=== PATIENT | female | born 1940 | race Caucasian/White ===

== ENCOUNTER 2023-06-21 21:01 | Emergency (ER) | payer MEDICARE ==
--- NOTE | 2023-06-21 21:14 | ED ---
General Adult HPI - General Stated complaint: Low BP Time Seen by Provider: 06/21/23 21:10 Source: patient Limitations: no limitations - History of Present Illness Initial comments: This patient is an 82-year-old woman who arrives here to have evaluation for her blood pressure. The patient states that her blood pressure has been at times low today and at times high. She states she is not feeling well. She states the main thing is that she is feeling very weak and fatigued. She is denying having any pain. She states she does have some shortness of breath but she is only short of breath and she has a chronic nonproductive cough which she states is not different today. She has not noted changes in bowel movements or urination. No vomiting or nausea. She states she just does not feel well. The patient states she has been in this area for about 3 months visiting family and that she usually resides in [place] though she believes she may not be returning there. -: hour(s) Severity scale (1-10): 0 Consistency: constant Improves with: none Worsens with: none Associated Symptoms: shortness of breath, weakness Treatments Prior to Arrival: none - Related Data Home Medications Medication Instructions Recorded Confirmed Acetaminophen Tab [Tylenol Tab] 500 - 1,000 mg PO Q4-6H PRN 06/21/23 06/21/23 Albuterol Nebulized [Ventolin 2.5 mg INHALATION RT-BID 06/21/23 06/21/23 Nebulized] Albuterol Nebulized [Ventolin 2.5 mg INHALATION RT-DAILY PRN 06/21/23 06/21/23 Nebulized] Apixaban [Eliquis] 2.5 mg PO BID@0800,2100 06/21/23 06/21/23 Aspirin 81 mg PO DAILY 06/21/23 06/21/23 Benefiber Sugar Free Powder 2 tsp PO BID@0800,1700 06/21/23 06/21/23 Benzonatate [Tessalon Perles] 100 mg PO Q8H PRN 06/21/23 06/21/23 Citalopram Hydrobromide [CeleXA] 20 mg PO HS 06/21/23 06/21/23 Cyclobenzaprine [Flexeril] 10 mg PO HS@2000 06/21/23 06/21/23 Donepezil [Aricept] 10 mg PO HS 06/21/23 06/21/23 Ergocalciferol [Vitamin D2 (1250 1,250 mcg PO FR 06/21/23 06/21/23 Mcg = 05510 Iu)] Ferrous Sulfate [Feosol] 325 mg PO Q2D@0800 06/21/23 06/21/23 [place] Relief 5.8mg Lozenge 1 lozenge MM Q2H PRN 06/21/23 06/21/23 Lactobacillus Acidophilus 1 cap PO BID@0800,2100 06/21/23 06/21/23 [Acidophilus Probiotic] Losartan [Cozaar] 50 mg PO DAILY@0800 06/21/23 06/21/23 Meloxicam [Mobic] 15 mg PO HS 06/21/23 06/21/23 Midodrine [ProAmatine] 5 mg PO Q8H PRN 06/21/23 06/21/23 Nortriptyline [Pamelor] 20 mg PO HS@2200 06/21/23 06/21/23 carvediloL [Coreg] 3.125 mg PO BID@0800,2100 06/21/23 06/21/23 cloNIDine HCL [Catapres] 0.3 mg PO DAILY PRN 06/21/23 06/21/23 rOPINIRole HCL [Requip] 2 mg PO BID@0800,1400 06/21/23 06/21/23 rOPINIRole HCL [Requip] 2 mg PO DAILY PRN 06/21/23 06/21/23 rOPINIRole HCL [Requip] 4 mg PO HS 06/21/23 06/21/23 traZODone HCL [Desyrel] 100 mg PO HS 06/21/23 06/21/23 Allergies Allergy/AdvReac Type Severity Reaction Status Date / Time Antihistamines - Alkylamine AdvReac Mild Drowsy Verified 06/21/23 22:29 Review of Systems ROS Statement: Those systems with pertinent positive or pertinent negative responses have been documented in the HPI. ROS Other: All systems not noted in ROS Statement are negative. Constitutional: Reports: weakness. Denies: fever, chills Eyes: Denies: vision change ENT: Denies: throat pain, congestion Respiratory: Reports: as per HPI, cough, dyspnea. Denies: hemoptysis Cardiovascular: Denies: chest pain, palpitations, orthopnea, edema, syncope Gastrointestinal: Denies: abdominal pain, nausea, vomiting, diarrhea, constipation Genitourinary: Denies: dysuria, frequency Musculoskeletal: Denies: back pain Skin: Denies: rash Neurological: Denies: headache, weakness, numbness General Exam General appearance: alert, in no apparent distress Head exam: Present: atraumatic, normocephalic Eye exam: Present: normal appearance, PERRL, EOMI. Absent: scleral icterus, conjunctival injection ENT exam: Present: mucous membranes dry Neck exam: Present: normal inspection, full ROM. Absent: tenderness Respiratory exam: Absent: respiratory distress, wheezes, rales, rhonchi, st ridor, accessory muscle use, decreased breath sounds Cardiovascular Exam: Present: regular rate, normal rhythm, normal heart sounds. Absent: systolic murmur, diastolic murmur, rubs, gallop GI/Abdominal exam: Present: soft. Absent: distended, tenderness, guarding, rebound, rigid, mass Extremities exam: Present: normal inspection, normal capillary refill. Absent: pedal edema, calf tenderness Back exam: Present: normal inspection. Absent: CVA tenderness (R), CVA tenderness (L) Neurological exam: Present: alert. Absent: motor sensory deficit Skin exam: Present: warm, dry, intact, normal color. Absent: rash Course Vital Signs 06/21/23 06/22/23 06/22/23 21:09 00:08 01:00 Temperature Pulse Rate 61 71 Respiratory 18 20 Rate Blood Pressure 97/53 125/58 138/70 O2 Sat by Pulse 96 96 Oximetry 06/22/23 06/22/23 06/22/23 01:30 02:00 02:30 Temperature Pulse Rate Respiratory Rate Blood Pressure 134/71 145/67 139/70 O2 Sat by Pulse Oximetry 06/22/23 02:46 Temperature 97.1 F L Pulse Rate 72 Respiratory 18 Rate Blood Pressure 131/75 O2 Sat by Pulse 98 Oximetry EKG Findings - EKG Results: EKG: interpreted by KYAW, sinus rhythm (61 bpm) - UT, Pacemaker, Normal: Myocardial infarction: septal UT (old age or indeterminate) (Old septal UT) Medical Decision Making - Medical Decision Making The patient had chest x-ray which I interpreted as being negative for acute infiltrate or pneumothorax. Was pt. sent in by a medical professional or institution ([facility], [employer]IC[employer], urgent care, hospital, or half-way...) When possible be specific @ -Patient is sent from [facility] home to have evaluation Did you speak to anyone other than the patient for history (EMS, parent, family, police, friend...)? What history was obtained from this source @ -[No] Did you review nursing and triage notes (agree or disagree)? Why? @ -[I reviewed and agree with nursing and triage notes] Were old charts reviewed (outside hosp., previous admission, EMS record, old EKG, old radiological studies, urgent care reports/EKG's, half-way records)? Report findings @ -[No old charts were reviewed] Differential Diagnosis (chest pain, altered mental status, abdominal pain women, abdominal pain men, vaginal bleeding, weakness, fever, dyspnea, syncope, headache, dizziness, GI bleed, back pain, seizure, CVA, palpatations, mental health, musculoskeletal)? @ -[Differential Altered Mental Status: Hypoglycemia, DKA, hypercapnia, ETOH, overdose, CO poisoning, trauma, myxedema coma, HTN encephalopathy, infection, encephalitis, psychosis, intercranial hemorrhage, hepatic encephalopathy, meningitis, CVA, this is not meant to be an all-inclusive list EKG interpreted by me (3pts min.). @ -[As above] X-rays interpreted by me (1pt min.). @ -[I interpreted as above CT interpreted by me (1pt min.). @ -[None done] U/S interpreted by me (1pt. min.). @ -[None done] What testing was considered but not performed or refused? (CT, X-rays, U/S, labs)? Why? @ -[None] What meds were considered but not given or refused? Why? @ -[None] Did you discuss the management of the patient with other professionals (professionals i.e. [facility], [employer]RICATOR, lab, RT, psych nurse, social professionals, laser/electro optics technician, teacher, anti air warfare operations officer, patient case coordinator)? Give summary @ -[No] Was smoking cessation discussed for >3mins.? @ -[No] Was critical care preformed (if so, how long)? @ -[No] Were there social determinants of health that impacted care today? How? (Homelessness, low income, unemployed, alcoholism, drug addiction, transportation, low edu. Level, literacy, decrease access to med. care, half-way, rehab)? @ -[No] Was there de-escalation of care discussed even if they declined (Discuss DNR or withdrawal of care, Hospice)? DNR status @ -[No] What co-morbidities impacted this encounter? (DM, HTN, Smoking, COPD, CAD, Cancer, CVA, ARF, Chemo, Hep., AIDS, mental health diagnosis, sleep apnea, morbid obesity)? @ -[None] Was patient admitted / discharged? Hospital course, mention meds given and route, prescriptions, significant lab abnormalities, going to OR and other pertinent info. @ -[Patient is an 82-year-old woman here after her there were concerns about her altered mental status after taking clonazepam. The patient found to be moderately anemic though not meeting criteria for transfusion. Patient to follow-up to have hemoglobin rechecked. She is at the [facility] home and they will send her back if there is any change in her condition Undiagnosed new problem with uncertain prognosis? @ -[No] Drug Therapy requiring intensive monitoring for toxicity (Heparin, Nitro, Insulin, Cardizem)? @ -[No] Were any procedures done? @ -[No] Diagnosis/symptom? @ -[Anemia Generalized fatigue Acute, or Chronic, or Acute on Chronic? @ -[Uncertain if this is acute or chronic as the patient does not have old labs values Uncomplicated (without systemic symptoms) or Complicated (systemic symptoms)? @ -[Complicated by generalized fatigue Side effects of treatment? @ -[No] Exacerbation, Progression, or Severe Exacerbation? @ -[No] Poses a threat to life or bodily function? How? (Chest pain, USA, UT, pneumonia, PE, COPD, DKA, ARF, appy, cholecystitis, CVA, Diverticulitis, Homicidal, Suicidal, threat to staff... and all critical care pts) @ -[Low likelihood - Lab Data Result diagrams: 06/21/23 21:40 06/21/23 21:40 Lab Results 06/21/23 06/21/23 06/21/23 Range/Units 21:40 21:40 21:40 WBC 5.7 (3.8-10.6) k/uL RBC 3.31 L (3.80-5.40) m/uL Hgb 7.5 L (11.4-16.0) gm/dL Hct 24.9 L (34.0-46.0) % MCV 75.0 L (80.0-100.0) fL MCH 22.6 L (25.0-35.0) pg MCHC 30.1 L (31.0-37.0) g/dL RDW 19.5 H (11.5-15.5) % Plt Count 323 (150-450) k/uL MPV 7.9 Neutrophils % 55 % Lymphocytes % 29 % Monocytes % 8 % Eosinophils % 4 % Basophils % 1 % Neutrophils # 3.1 (1.3-7.7) k/uL Lymphocytes # 1.7 (1.0-4.8) k/uL Monocytes # 0.5 (0-1.0) k/uL Eosinophils # 0.2 (0-0.7) k/uL Basophils # 0.1 (0-0.2) k/uL Hypochromasia Marked Anisocytosis Slight Microcytosis Moderate PT 12.1 H (9.0-12.0) sec INR 1.2 H (<1.2) APTT 26.1 (22.0-30.0) sec Sodium 133 L (137-145) mmol/L Potassium 5.0 (3.5-5.1) mmol/L Chloride 104 (98-107) mmol/L Carbon Dioxide 23 (22-30) mmol/L Anion Gap 6 mmol/L BUN 20 H (7-17) mg/dL Creatinine 0.70 (0.52-1.04) mg/dL Est GFR (CKD-EPI)AfAm >90 (>60 ml/min/1.73 sqM) Est GFR (CKD-EPI)NonAf 82 (>60 ml/min/1.73 sqM) Glucose 78 (74-99) mg/dL Plasma Lactic Acid Michael (0.7-2.0) mmol/L Calcium 7.8 L (8.4-10.2) mg/dL Magnesium 1.9 (1.6-2.3) mg/dL Total Bilirubin 0.2 (0.2-1.3) mg/dL AST 23 (14-36) U/L ALT 17 (4-34) U/L Alkaline Phosphatase 66 (38-126) U/L Troponin I (0.000-0.034) ng/mL Total Protein 5.8 L (6.3-8.2) g/dL Albumin 2.9 L (3.5-5.0) g/dL Urine Color Urine Appearance (Clear) Urine pH (5.0-8.0) Ur Specific [place] (1.001-1.035) Urine Protein (Negative) Urine Glucose (UA) (Negative) Urine Ketones (Negative) Urine Blood (Negative) Urine Nitrite (Negative) Urine Bilirubin (Negative) Urine Urobilinogen (<2.0) mg/dL Ur Leukocyte Esterase (Negative) 06/21/23 06/21/23 06/22/23 Range/Units 21:40 21:40 02:13 WBC (3.8-10.6) k/uL RBC (3.80-5.40) m/uL Hgb (11.4-16.0) gm/dL Hct (34.0-46.0) % MCV (80.0-100.0) fL MCH (25.0-35.0) pg MCHC (31.0-37.0) g/dL RDW (11.5-15.5) % Plt Count (150-450) k/uL MPV Neutrophils % % Lymphocytes % % Monocytes % % Eosinophils % % Basophils % % Neutrophils # (1.3-7.7) k/uL Lymphocytes # (1.0-4.8) k/uL Monocytes # (0-1.0) k/uL Eosinophils # (0-0.7) k/uL Basophils # (0-0.2) k/uL Hypochromasia Anisocytosis Microcytosis PT (9.0-12.0) sec INR (<1.2) APTT (22.0-30.0) sec Sodium (137-145) mmol/L Potassium (3.5-5.1) mmol/L Chloride (98-107) mmol/L Carbon Dioxide (22-30) mmol/L Anion Gap mmol/L BUN (7-17) mg/dL Creatinine (0.52-1.04) mg/dL Est GFR (CKD-EPI)AfAm (>60 ml/min/1.73 sqM) Est GFR (CKD-EPI)NonAf (>60 ml/min/1.73 sqM) Glucose (74-99) mg/dL Plasma Lactic Acid Michael 1.3 (0.7-2.0) mmol/L Calcium (8.4-10.2) mg/dL Magnesium (1.6-2.3) mg/dL Total Bilirubin (0.2-1.3) mg/dL AST (14-36) U/L ALT (4-34) U/L Alkaline Phosphatase (38-126) U/L Troponin I <0.012 (0.000-0.034) ng/mL Total Protein (6.3-8.2) g/dL Albumin (3.5-5.0) g/dL Urine Color Colorless Urine Appearance Clear (Clear) Urine pH 5.5 (5.0-8.0) Ur Specific [place] 1.004 (1.001-1.035) Urine Protein Negative (Negative) Urine Glucose (UA) Negative (Negative) Urine Ketones Negative (Negative) Urine Blood Negative (Negative) Urine Nitrite Negative (Negative) Urine Bilirubin Negative (Negative) Urine Urobilinogen <2.0 (<2.0) mg/dL Ur Leukocyte Esterase Negative (Negative) Disposition Clinical Impression: Anemia Disposition: HOME SELF-CARE Condition: Good Instructions (If sedation given, give patient instructions): Anemia (ED) Additional Instructions: As we discussed follow-up to have your blood counts rechecked in 2 days. Is patient prescribed a controlled substance at d/c from ED?: No Referrals: None,Stated [Primary Care Provider] - 1-2 days Martín Soto MD [REFERRING] - 1-2 days
[2023-06-21] MEDS ORDERED: SODIUM CHLORIDE 0.9% 500 ML 500 ML IV STA (21:23)
[2023-06-21 22:13] LABS: Anisocytosis Slight; Basophils # (A) 0.1 k/uL (0-0.2); Basophils % (A) 1 %; Eosinophils # (A) 0.2 k/uL (0-0.7); Eosinophils % (A) 4 %; HCT 24.9 % (34.0-46.0); HGB 7.5 gm/dL (11.4-16.0); Hypochromasia Marked; Lymphocytes # (A) 1.7 k/uL (1.0-4.8); Lymphocytes % (A) 29 %; MCH 22.6 pg (25.0-35.0); MCHC 30.1 g/dL (31.0-37.0); Mean Platelet Volume 7.9; Microcytosis Moderate; Monocytes # (A) 0.5 k/uL (0-1.0); Monocytes % (A) 8 %; Neutrophils # (A) 3.1 k/uL (1.3-7.7); Neutrophils % (A) 55 %; Platelet Count 323 k/uL (150-450); RBC 3.31 m/uL (3.80-5.40); RDW 19.5 % (11.5-15.5); WBC 5.7 k/uL (3.8-10.6)
[2023-06-21 22:22] LABS: INR 1.2 (<1.2); Partial Thromboplastin Time 26.1 sec (22.0-30.0); Prothrombin Time 12.1 sec (9.0-12.0)
[2023-06-21 22:35] LABS: ALT 17 U/L (4-34); AST 23 U/L (14-36); African American GFR (CKD) >90 (>60 ml/min/1.73 sqM); Albumin 2.9 g/dL (3.5-5.0); Alkaline Phosphatase 66 U/L (38-126); Anion Gap 6 mmol/L; Blood Urea Nitrogen 20 mg/dL (7-17); Calcium 7.8 mg/dL (8.4-10.2); Carbon Dioxide 23 mmol/L (22-30); Chloride 104 mmol/L (98-107); Glucose 78 mg/dL (74-99); Magnesium 1.9 mg/dL (1.6-2.3); Non-African American GFR(CKD) 82 (>60 ml/min/1.73 sqM); Sodium 133 mmol/L (137-145); Total Bilirubin 0.2 mg/dL (0.2-1.3); Total Protein 5.8 g/dL (6.3-8.2)
--- NOTE | 2023-06-21 23:02 | XR ---
EXAM: XR Chest, 2 Views CLINICAL HISTORY: Weakness TECHNIQUE: Frontal and lateral views of the chest. COMPARISON: No relevant prior studies available. FINDINGS: Lungs: No consolidation. Minimal basilar atelectasis. No CHF. Pleural space: No pleural effusion. No pneumothorax. Heart: No cardiomegaly. Mediastinum: Unremarkable. Bones/joints: Status post tenotomy. Bilateral shoulder arthroplasties. Bones are osteopenic. Age-indeterminate probable L1 vertebral body compression fracture. IMPRESSION: No CHF or infiltrate. Age-indeterminate probable L1 vertebral body compression fracture.
[2023-06-22 02:22] LABS: Appearance,Urine Clear (Clear); Bilirubin,Urine Negative (Negative); Blood,Urine Negative (Negative); Color,Urine Colorless; Glucose,Urine (UA) Negative (Negative); Ketones,Urine Negative (Negative); Leukocyte Esterase,Urine Negative (Negative); Nitrite,Urine Negative (Negative); PH, Urine 5.5 (5.0-8.0); Protein,Urine Negative (Negative); Specific Gravity,Urine 1.004 (1.001-1.035); Urobilinogen,Urine <2.0 mg/dL (<2.0)
[2023-06-22 02:49] VITALS: BP 131/75; PULSE 72; RESP 18; TEMP 97.1
== END 2023-06-22 03:04 | disposition home or self-care (01) ==
LOC: EC 21:01
DX: D64.9 Anemia, unspecified (principal); Z79.82 Long term (current) use of aspirin; Z88.6 Allergy status to analgesic agent
CPT/HCPCS: 36415; 71046; 80053; 81003; 83605; 83735; 84484; 85025; 85610; 85730; 93005; 99285

== ENCOUNTER 2023-12-08 12:00 | Emergency (ER) | payer MEDICARE ==
[2023-12-08 12:24] VITALS: TEMP 97.8
[2023-12-08 13:34] LABS: Basophils # (A) 0.1 k/uL (0-0.2); Basophils % (A) 1 %; Eosinophils # (A) 0.3 k/uL (0-0.7); Eosinophils % (A) 3 %; HCT 32.2 % (34.0-46.0); HGB 10.2 gm/dL (11.4-16.0); Hypochromasia Marked; Lymphocytes # (A) 1.6 k/uL (1.0-4.8); Lymphocytes % (A) 14 %; MCH 28.1 pg (25.0-35.0); MCHC 31.8 g/dL (31.0-37.0); MCV 88.2 fL (80.0-100.0); Mean Platelet Volume 7.3; Monocytes # (A) 0.5 k/uL (0-1.0); Monocytes % (A) 5 %; Neutrophils # (A) 8.8 k/uL (1.3-7.7); Neutrophils % (A) 76 %; Platelet Count 354 k/uL (150-450); RBC 3.65 m/uL (3.80-5.40); RDW 14.9 % (11.5-15.5); WBC 11.6 k/uL (3.8-10.6)
[2023-12-08 13:39] LABS: ALT 27 U/L (4-34); AST 33 U/L (14-36); African American GFR (CKD) >90 (>60 ml/min/1.73 sqM); Albumin 3.6 g/dL (3.5-5.0); Alkaline Phosphatase 73 U/L (38-126); Anion Gap 6 mmol/L; Blood Urea Nitrogen 19 mg/dL (7-17); Calcium 8.7 mg/dL (8.4-10.2); Carbon Dioxide 21 mmol/L (22-30); Chloride 110 mmol/L (98-107); Glucose 75 mg/dL (74-99); Magnesium 1.9 mg/dL (1.6-2.3); Non-African American GFR(CKD) 83 (>60 ml/min/1.73 sqM); Potassium 4.7 mmol/L (3.5-5.1); Sodium 137 mmol/L (137-145); Total Bilirubin 0.3 mg/dL (0.2-1.3); Total Protein 6.8 g/dL (6.3-8.2)
[2023-12-08 14:00] LABS: INR 1.2 (<1.2); Partial Thromboplastin Time 27.8 sec (22.0-30.0); Prothrombin Time 12.6 sec (10.0-12.5)
--- NOTE | 2023-12-08 14:13 | XR ---
EXAMINATION TYPE: XR chest 2V DATE OF EXAM: 12/08/2023 COMPARISON: 06/21/2023 HISTORY: Shortness of breath TECHNIQUE: Frontal and lateral views of the chest are obtained. FINDINGS: Scattered senescent parenchymal changes noted. Hyperinflation compatible with COPD. No evidence for infiltrate. No evidence for atelectasis. Pulmonary venous congestion with small effusions and cardiomegaly. Mediastinal structures are stable and grossly unremarkable. No evidence for hilar prominence. Degenerative changes dorsal spine. IMPRESSION: 1. Pulmonary venous congestion with small effusions and cardiomegaly.
--- NOTE | 2023-12-08 14:23 | ED ---
General Adult HPI - General Chief complaint: Syncope Stated complaint: Syncope, Diarrhea Time Seen by Provider: 12/08/23 12:15 Source: patient, EMS Mode of arrival: EMS Limitations: no limitations - History of Present Illness Initial comments: 83-year-old female presents to the emergency department from [facility] home. Patient reports diarrhea for the past several weeks. It was also reported that the patient had a brief unresponsive episode where they thought that the patient had passed out. She did not suffer any trauma. No head injury. The patient does take a blood thinner. She denies having any chest pain or worsening shortness of breath prior to the episode. Patient feels back to her baseline at this time. She does report to some shortness of breath chronically which is unchanged. No fevers. Denies any recent antibiotic use. No other alleviating, precipitating or modifying factors - Related Data Home Medications Medication Instructions Recorded Confirmed Acetaminophen Tab [Tylenol Tab] 500 - 1,000 mg PO Q4-6H PRN 06/21/23 12/08/23 Albuterol Nebulized [Ventolin 2.5 mg INHALATION RT-BID@0800,209906/21/23 12/08/23 Nebulized] Albuterol Nebulized [Ventolin 2.5 mg INHALATION RT-DAILY PRN 06/21/23 12/08/23 Nebulized] Apixaban [Eliquis] 2.5 mg PO BID@799,209906/21/23 12/08/23 Aspirin 81 mg PO DAILY@0800 06/21/23 12/08/23 Benefiber Sugar Free Powder 2 tsp PO BID@0800,1700 06/21/23 12/08/23 Benzonatate [Tessalon Perles] 100 mg PO Q8H PRN 06/21/23 12/08/23 Citalopram Hydrobromide [CeleXA] 20 mg PO HS@209906/21/23 12/08/23 Cyclobenzaprine [Flexeril] 10 mg PO HS@199906/21/23 12/08/23 Donepezil [Aricept] 10 mg PO HS@209906/21/23 12/08/23 Ergocalciferol [Vitamin D2 (1250 1,250 mcg PO FR 06/21/23 12/08/23 Mcg = 49079 Iu)] Ferrous Sulfate [Feosol] 325 mg PO Q2D@0806/21/23 12/08/23 [place] Relief 5.8mg Lozenge 1 lozenge MM Q2H PRN 06/21/23 12/08/23 Lactobacillus Acidophilus 1 cap PO BID@0800,209906/21/23 12/08/23 [Acidophilus Probiotic] Losartan [Cozaar] 50 mg PO DAILY@79906/21/23 12/08/23 Meloxicam [Mobic] 15 mg PO HS@209906/21/23 12/08/23 Midodrine [ProAmatine] 5 mg PO Q8H PRN 06/21/23 12/08/23 Nortriptyline [Pamelor] 20 mg PO HS@219906/21/23 12/08/23 carvediloL [Coreg] 3.125 mg PO BID@0800,209906/21/23 12/08/23 rOPINIRole HCL [Requip] 2 mg PO BID@0800,1400 06/21/23 12/08/23 rOPINIRole HCL [Requip] 2 mg PO DAILY PRN 06/21/23 12/08/23 rOPINIRole HCL [Requip] 4 mg PO HS@209906/21/23 12/08/23 traZODone HCL [Desyrel] 100 mg PO HS@209906/21/23 12/08/23 Acetaminophen [Tylenol 8 Hour] 650 mg PO BID 12/08/23 12/08/23 Folic Acid 1 mg PO DAILY@79912/08/23 12/08/23 Mecobalamin [Vitamin B-12] 1,000 mcg PO DAILY@79912/08/23 12/08/23 Vitamin C/Biotin [Hair, Skin and 1 tab PO DAILY@79912/08/23 12/08/23 Nails Chew] cloNIDine 0.1 MG/24HR PATCH 1 patch TRANSDERM Q7D 12/08/23 12/08/23 [Catapres-TTS] cloNIDine HCL [Catapres] 0.1 mg PO DAILY PRN 12/08/23 12/08/23 Allergies Allergy/AdvReac Type Severity Reaction Status Date / Time Antihistamines - Alkylamine AdvReac Mild Drowsy Verified 12/08/23 14:05 codeine AdvReac Unknown Verified 12/08/23 14:05 gabapentin AdvReac Unknown Verified 12/08/23 14:05 mirtazapine AdvReac Unknown Verified 12/08/23 14:05 Review of Systems ROS Statement: Those systems with pertinent positive or pertinent negative responses have been documented in the HPI. ROS Other: All systems not noted in ROS Statement are negative. Past Medical History Past Medical History: Heart Failure, COPD History of Any Multi-Drug Resistant Organisms: None Reported Past Surgical History: Unable to Obtain Past Psychological History: No Psychological Hx Reported Smoking Status: Former smoker Past Alcohol Use History: Daily Past Drug Use History: None Reported General Exam Limitations: no limitations General appearance: alert, in no apparent distress Head exam: Present: atraumatic, normocephalic, normal inspection Eye exam: Present: normal appearance, PERRL, EOMI. Absent: scleral icterus, conjunctival injection, periorbital swelling ENT exam: Present: normal exam, mucous membranes moist Neck exam: Present: normal inspection. Absent: tenderness, meningismus, lymphadenopathy Respiratory exam: Present: rales. Absent: respiratory distress, wheezes, rhonchi, stridor Cardiovascular Exam: Present: regular rate, normal rhythm, normal heart sounds. Absent: systolic murmur, diastolic murmur, rubs, gallop, clicks GI/Abdominal exam: Present: soft, normal bowel sounds. Absent: distended, tenderness, guarding, rebound, rigid Extremities exam: Present: normal inspection, full ROM, normal capillary refill. Absent: tenderness, pedal edema, joint swelling, calf tenderness Back exam: Present: normal inspection Neurological exam: Present: alert, oriented X3, CN II-XII intact Psychiatric exam: Present: normal affect, normal mood Skin exam: Present: warm, dry, intact, normal color. Absent: rash Course Vital Signs 12/08/23 12/08/23 12:04 15:01 Temperature 97.8 F Pulse Rate 62 75 Respiratory 16 18 Rate Blood Pressure 140/65 171/92 O2 Sat by Pulse 95 96 Oximetry Medical Decision Making - Medical Decision Making Was pt. sent in by a medical professional or institution (, PA, AFTER SCHOOL TUTOR, urgent care, hospital, or fpc...) When possible be specific @ -Sent in from [facility] home Did you speak to anyone other than the patient for history (EMS, parent, family, police, friend...)? What history was obtained from this source @ -Spoke with the patient's daughter Did you review nursing and triage notes (agree or disagree)? Why? @ -I reviewed and agree with nursing and triage notes Were old charts reviewed (outside hosp., previous admission, EMS record, old EKG, old radiological studies, urgent care reports/EKG's, fpc records)? Report findings @ -No old charts were reviewed Differential Diagnosis (chest pain, altered mental status, abdominal pain women, abdominal pain men, vaginal bleeding, weakness, fever, dyspnea, syncope, headache, dizziness, GI bleed, back pain, seizure, CVA, palpatations, mental health, musculoskeletal)? @ -Differential Syncope: Valvular disease, hypertrophic cardiomyopathy, pulmonary embolism, tamponade, tachycardia, bradycardia, ME, hypovolemia, hemorrhage, dissection, anemia, intracranial hemorrhage, seizure, hypoglycemia, carbon monoxide poisoning, this is not meant to be an all-inclusive list. EKG interpreted by me (3pts min.). @ -Yes and demonstrates sinus rhythm with a rate of 68. Parable 209. QRS 86. QTc 468. No acute ST segment elevations or depressions X-rays interpreted by me (1pt min.). @ -Yes and demonstrates some pulmonary vascular congestion however patient does not report any shortness of breath and pulse ox is normal CT interpreted by me (1pt min.). @ -None done U/S interpreted by me (1pt. min.). @ -None done What testing was considered but not performed or refused? (CT, X-rays, U/S, labs)? Why? @ -Echo however patient refused admission What meds were considered but not given or refused? Why? @ -None Did you discuss the management of the patient with other professionals (professionals i.e. , PA, AFTER SCHOOL TUTOR, lab, RT, psych nurse, social insurance adviser, tanbark laborer, teacher, first officer, field case manager)? Give summary @ -No Was smoking cessation discussed for >3mins.? @ -No Was critical care preformed (if so, how long)? @ -No Were there social determinants of health that impacted care today? How? (Homelessness, low income, unemployed, alcoholism, drug addiction, transportation, low edu. Level, literacy, decrease access to med. care, alf, rehab)? @ -No Was there de-escalation of care discussed even if they declined (Discuss DNR or withdrawal of care, Hospice)? DNR status @ -No What co-morbidities impacted this encounter? (DM, HTN, Smoking, COPD, CAD, Cancer, CVA, ARF, Chemo, Hep., AIDS, mental health diagnosis, sleep apnea, morbid obesity)? @ -COPD, heart failure Was patient admitted / discharged? Hospital course, mention meds given and route, prescriptions, significant lab abnormalities, going to OR and other pertinent info. @ -Discharged. Upon arrival patient was placed into room 21. Thorough history and physical exam was performed. Patient placed on continuous pulse ox and cardiac monitoring. Twelve-lead EKG is obtained. Laboratory studies are condu cted. Patient does go for chest x-ray. Patient feels asymptomatic throughout her stay. I did recommend admission for echo however patient refused. States that she feels well at this time and would like to go home. Her daughter is at bedside and was agreeable to this plan. They must follow-up with the primary care doctor within 2 to 4 days and return for any new or worsening symptoms. Patient agreeable to plan was discharged in stable condition Undiagnosed new problem with uncertain prognosis? @ -Yes Drug Therapy requiring intensive monitoring for toxicity (Heparin, Nitro, Insulin, Cardizem)? @ -No Were any procedures done? @ -No Diagnosis/symptom? @ -Acute syncope Acute, or Chronic, or Acute on Chronic? @ -Acute Uncomplicated (without systemic symptoms) or Complicated (systemic symptoms)? @ -Complicated Side effects of treatment? @ -No Exacerbation, Progression, or Severe Exacerbation? @ -No Poses a threat to life or bodily function? How? (Chest pain, USA, ME, pneumonia, PE, COPD, DKA, ARF, appy, cholecystitis, CVA, Diverticulitis, Homicidal, Suicidal, threat to staff... and all critical care pts) @ -No - Lab Data Result diagrams: 12/08/23 12:45 12/08/23 12:45 Lab Results 12/08/23 12/08/23 12/08/23 Range/Units 12:45 12:45 12:45 WBC 11.6 H (3.8-10.6) k/uL RBC 3.65 L (3.80-5.40) m/uL Hgb 10.2 L (11.4-16.0) gm/dL Hct 32.2 L (34.0-46.0) % MCV 88.2 (80.0-100.0) fL MCH 28.1 (25.0-35.0) pg MCHC 31.8 (31.0-37.0) g/dL RDW 14.9 (11.5-15.5) % Plt Count 354 (150-450) k/uL MPV 7.3 Neutrophils % 76 % Lymphocytes % 14 % Monocytes % 5 % Eosinophils % 3 % Basophils % 1 % Neutrophils # 8.8 H (1.3-7.7) k/uL Lymphocytes # 1.6 (1.0-4.8) k/uL Monocytes # 0.5 (0-1.0) k/uL Eosinophils # 0.3 (0-0.7) k/uL Basophils # 0.1 (0-0.2) k/uL Hypochromasia Marked PT 12.6 H (10.0-12.5) sec INR 1.2 H (<1.2) APTT 27.8 (22.0-30.0) sec Sodium 137 (137-145) mmol/L Potassium 4.7 (3.5-5.1) mmol/L Chloride 110 H (98-107) mmol/L Carbon Dioxide 21 L (22-30) mmol/L Anion Gap 6 mmol/L BUN 19 H (7-17) mg/dL Creatinine 0.66 (0.52-1.04) mg/dL Est GFR (CKD-EPI)AfAm >90 (>60 ml/min/1.73 sqM) Est GFR (CKD-EPI)NonAf 83 (>60 ml/min/1.73 sqM) Glucose 75 (74-99) mg/dL Calcium 8.7 (8.4-10.2) mg/dL Magnesium 1.9 (1.6-2.3) mg/dL Total Bilirubin 0.3 (0.2-1.3) mg/dL AST 33 (14-36) U/L ALT 27 (4-34) U/L Alkaline Phosphatase 73 (38-126) U/L Troponin I (0.000-0.034) ng/mL Total Protein 6.8 (6.3-8.2) g/dL Albumin 3.6 (3.5-5.0) g/dL 12/08/23 Range/Units 12:45 WBC (3.8-10.6) k/uL RBC (3.80-5.40) m/uL Hgb (11.4-16.0) gm/dL Hct (34.0-46.0) % MCV (80.0-100.0) fL MCH (25.0-35.0) pg MCHC (31.0-37.0) g/dL RDW (11.5-15.5) % Plt Count (150-450) k/uL MPV Neutrophils % % Lymphocytes % % Monocytes % % Eosinophils % % Basophils % % Neutrophils # (1.3-7.7) k/uL Lymphocytes # (1.0-4.8) k/uL Monocytes # (0-1.0) k/uL Eosinophils # (0-0.7) k/uL Basophils # (0-0.2) k/uL Hypochromasia PT (10.0-12.5) sec INR (<1.2) APTT (22.0-30.0) sec Sodium (137-145) mmol/L Potassium (3.5-5.1) mmol/L Chloride (98-107) mmol/L Carbon Dioxide (22-30) mmol/L Anion Gap mmol/L BUN (7-17) mg/dL Creatinine (0.52-1.04) mg/dL Est GFR (CKD-EPI)AfAm (>60 ml/min/1.73 sqM) Est GFR (CKD-EPI)NonAf (>60 ml/min/1.73 sqM) Glucose (74-99) mg/dL Calcium (8.4-10.2) mg/dL Magnesium (1.6-2.3) mg/dL Total Bilirubin (0.2-1.3) mg/dL AST (14-36) U/L ALT (4-34) U/L Alkaline Phosphatase (38-126) U/L Troponin I <0.012 (0.000-0.034) ng/mL Total Protein (6.3-8.2) g/dL Albumin (3.5-5.0) g/dL Disposition Clinical Impression: Near syncope Disposition: HOME SELF-CARE Condition: Stable Instructions (If sedation given, give patient instructions): Near Syncope (ED) Additional Instructions: Your laboratory testing was normal. Please follow-up with your doctor return for any new or worsening symptoms Is patient prescribed a controlled substance at d/c from ED?: No Referrals: Bryant Bailon MD [Primary Care Provider] - 1-2 days Time of Disposition: 14:36
[2023-12-08 15:19] VITALS: BP 171/92; PULSE 75; RESP 18
== END 2023-12-08 15:39 | disposition home or self-care (01) ==
LOC: EC 12:00
DX: R55 Syncope and collapse (principal); J44.9 Chronic obstructive pulmonary disease, unspecified; I50.9 Heart failure, unspecified; I25.2 Old myocardial infarction; Z87.891 Personal history of nicotine dependence; Z79.82 Long term (current) use of aspirin; Z79.899 Other long term (current) drug therapy; Z88.5 Allergy status to narcotic agent; Z88.8 Allergy status to other drugs, medicaments and biological substances
CPT/HCPCS: 36415; 71046; 80053; 83735; 84484; 85025; 85610; 85730; 93005; 99285

== ENCOUNTER 2024-08-11 18:28 | Inpatient (IN) | payer MEDICARE ==
--- NOTE | 2024-08-11 18:43 | ED ---
General Adult HPI - General Chief complaint: Chest Pain Stated complaint: Chest Pain Time Seen by Provider: 08/11/24 18:30 Source: patient, EMS, RN notes reviewed, old records reviewed Mode of arrival: EMS - History of Present Illness Initial comments: This is an 84-year-old female who presents to the emergency department stating that she comes in today because she is mildly short of breath had a little sharp chest pain with inspiration and has been coughing quite a bit. Patient states she also has a cough on a normal basis but is a little worse lately. Patient denies any sputum production. Patient states the chest pain is only there with deep breathing. Patient denies any palpitations. Patient denies headache patient has numbness weakness. Patient has abdominal pain patient has nausea vomiting or diarrhea - Related Data Home Medications Medication Instructions Recorded Confirmed Acetaminophen Tab [Tylenol Tab] 500 - 1,000 mg PO Q4-6H PRN 06/21/23 08/11/24 Albuterol Nebulized [Ventolin 2.5 mg INHALATION RT-QID PRN 06/21/23 08/11/24 Nebulized] Apixaban [Eliquis] 2.5 mg PO BID@08,209906/21/23 08/11/24 Aspirin 81 mg PO DAILY@79906/21/23 08/11/24 Benefiber Sugar Free Powder 2 tsp PO BID@0800,1700 06/21/23 08/11/24 Benzonatate [Tessalon Perles] 100 mg PO Q8H PRN 06/21/23 08/11/24 Citalopram Hydrobromide [CeleXA] 20 mg PO HS@209906/21/23 08/11/24 Cyclobenzaprine [Flexeril] 10 mg PO HS PRN 06/21/23 08/11/24 Donepezil [Aricept] 10 mg PO HS@209906/21/23 08/11/24 Ergocalciferol [Vitamin D2 (1250 1,250 mcg PO FR@79906/21/23 08/11/24 Mcg = 65162 Iu)] Ferrous Sulfate [Feosol] 325 mg PO Q2D@79906/21/23 08/11/24 Lactobacillus Acidophilus 1 cap PO BID@0800,209906/21/23 08/11/24 [Acidophilus Probiotic] Losartan [Cozaar] 50 mg PO DAILY@79906/21/23 08/11/24 Meloxicam [Mobic] 15 mg PO HS@209906/21/23 08/11/24 Midodrine [ProAmatine] 5 mg PO Q8H PRN 06/21/23 08/11/24 Nortriptyline [Pamelor] 20 mg PO HS@219906/21/23 08/11/24 carvediloL [Coreg] 3.125 mg PO BID@799,169906/21/23 08/11/24 rOPINIRole HCL [Requip] 2 mg PO BID PRN 06/21/23 08/11/24 traZODone HCL [Desyrel] 100 mg PO HS@209906/21/23 08/11/24 Acetaminophen [Tylenol 8 Hour] 650 mg PO BID@799,199912/08/23 08/11/24 Folic Acid 1 mg PO DAILY@79912/08/23 08/11/24 Vitamin C/Biotin [Hair, Skin and 1 tab PO DAILY@79912/08/23 08/11/24 Nails Chew] Cough Drop 5.4mg Lozenge 1 lozenge PO Q2H PRN 08/11/24 08/11/24 Diclofenac Sodium Gel [Voltaren 1% 2 - 4 gm TOPICAL HS@209908/11/24 08/11/24 Gel] HYDROcodone/APAP 5-325MG [[place] 1 tab PO Q4HR PRN 08/11/24 08/11/24 5-325] Miconazole 2% Cream [Monistat-Derm] 1 applic TOPICAL BID@799,209908/11/24 08/11/24 Vitamin B-12 1000mcg Sl Tab 1,000 mcg SL DAILY@79908/11/24 08/11/24 cloNIDine 0.2 MG/24HR PATCH 1 patch TRANSDERM FR@79908/11/24 08/11/24 [Catapres-TTS] hydrALAZINE HCL [Apresoline] 25 mg PO Q8H PRN 08/11/24 08/11/24 rOPINIRole HCL [Requip XL] 8 mg PO HS@199908/11/24 08/11/24 Allergies Allergy/AdvReac Type Severity Reaction Status Date / Time Antihistamines - Alkylamine AdvReac Mild Drowsy Verified 08/11/24 19:14 codeine AdvReac Unknown Verified 08/11/24 19:14 gabapentin AdvReac Unknown Verified 08/11/24 19:14 mirtazapine AdvReac Unknown Verified 08/11/24 19:14 Review of Systems ROS Statement: Those systems with pertinent positive or pertinent negative responses have been documented in the HPI. ROS Other: All systems not noted in ROS Statement are negative. Past Medical History Past Medical History: Heart Failure, COPD History of Any Multi-Drug Resistant Organisms: None Reported Past Surgical History: Unable to Obtain Past Psychological History: No Psychological Hx Reported Smoking Status: Former smoker Past Alcohol Use History: Daily Past Drug Use History: None Reported General Exam - General Exam Comments Initial Comments: GENERAL: Patient is well-developed and well-nourished. Patient is nontoxic and well-hydr ated and is in mild distress. ENT: Neck is soft and supple. No significant lymphadenopathy is noted. Oropharynx is clear. Moist mucous membranes. Neck has full range of motion without eliciting any pain. EYES: The sclera were anicteric and conjunctiva were pink and moist. Extraocular movements were intact and pupils were equal round and reactive to light. Eyelids were unremarkable. PULMONARY: Unlabored respirations. Good breath sounds bilaterally. Crackles in the right base CARDIOVASCULAR: There is a regular rate and rhythm without any murmurs gallops or rubs. ABDOMEN: Soft and nontender with normal bowel sounds. No palpable organomegaly was noted. There is no palpable pulsatile mass. SKIN: Skin is clear with no lesions or rashes and otherwise unremarkable. NEUROLOGIC: Patient is alert and oriented x3. Cranial nerves II through XII are grossly intact. Motor and sensory are also intact. Normal speech, volume and content. Symmetrical smile. MUSCULOSKELETAL: Normal extremities with adequate strength and full range of motion. LYMPHATICS: No significant lymphadenopathy is noted PSYCHIATRIC: Normal psychiatric evaluation. Course Vital Signs 08/11/24 08/11/24 18:31 20:12 Temperature 100.3 F H Pulse Rate 89 89 Respiratory 20 16 Rate Blood Pressure 142/73 118/67 O2 Sat by Pulse 97 100 Oximetry Medical Decision Making - Medical Decision Making EKG is interpreted by myself. EKG shows a sinus rhythm at 83 bpm parables 189 QRS is 89 QT interval 395 QTc is 435. Patient's EKG shows no ST segment ovation or depression. Was pt. sent in by a medical professional or institution (, HANG, STOGIE PACKER, urgent care, hospital, or penitentiary...) When possible be specific @ -[No] Did you speak to anyone other than the patient for history (EMS, parent, family, police, friend...)? What history was obtained from this source @ -[No] Did you review nursing and triage notes (agree or disagree)? Why? @ -[I reviewed and agree with nursing and triage notes] Were old charts reviewed (outside hosp., previous admission, EMS record, old EKG, old radiological studies, urgent care reports/EKG's, penitentiary records)? Report findings @ -[No old charts were reviewed] Differential Diagnosis? @ -Differential Dyspnea: Coronary syndrome, arrhythmia, tamponade, asthma, COPD, pulmonary embolism, pneumonia, pneumothorax, pulmonary effusion, anaphylaxis, diabetic ketoacidosis, flailed chest, pulmonary contusion, diaphragmatic rupture, anemia, neuromu scular, this is not meant to be an all-inclusive list. EKG interpreted by me (3pts min.). @ -[As above] X-rays interpreted by me (1pt min.). @ -Chest x-ray shows a small left-sided pleural effusion is a little bit of opacification in the right base. CT interpreted by me (1pt min.). @ -[None done] U/S interpreted by me (1pt. min.). @ -[None done] What testing was considered but not performed or refused? (CT, X-rays, U/S, labs)? Why? @ -[None] What meds were considered but not given or refused? Why? @ -[None] Did you discuss the management of the patient with other professionals (professionals i.e. , HANG, STOGIE PACKER, lab, RT, psych nurse, social organization professor, food porter, teacher, employment officer, case reviewer)? Give summary @ -I spoke with Dr. Herman he agreed to admit the patient admitted the patient Was smoking cessation discussed for >3mins.? @ -[No] Was critical care preformed (if so, how long)? @ -[No] Were there social determinants of health that impacted care today? How? (Homelessness, low income, unemployed, alcoholism, drug addiction, transportation, low edu. Level, literacy, decrease access to med. care, group home, rehab)? @ -[No] Was there de-escalation of care discussed even if they declined (Discuss DNR or withdrawal of care, Hospice)? DNR status @ -[No] What co-morbidities impacted this encounter? (DM, HTN, Smoking, COPD, CAD, Cancer, CVA, ARF, Chemo, Hep., AIDS, mental health diagnosis, sleep apnea, morbid obesity)? @ -[None] Was patient admitted / discharged? Hospital course, mention meds given and route, prescriptions, significant lab abnormalities, going to OR and other pertinent info. @ -Patient clinically sounded like pneumonia in the right base x-ray had some slight opacification. Patient will be treated with antibiotics admitted to Dr. Herman and troponins will be followed serially Undiagnosed new problem with uncertain prognosis? @ -[No] Drug Therapy requiring intensive monitoring for toxicity (Heparin, Nitro, Insulin, Cardizem)? @ -[No] Were any procedures done? @ -[No] Diagnosis/symptom? @ -Pneumonia Acute, or Chronic, or Acute on Chronic? @ -Acute Uncomplicated (without systemic symptoms) or Complicated (systemic symptoms)? @ -Complicated Side effects of treatment? @ -[No] Exacerbation, Progression, or Severe Exacerbation? @ -[No] Poses a threat to life or bodily function? How? (Chest pain, USA, [place], pneumonia, PE, COPD, DKA, ARF, appy, cholecystitis, CVA, Diverticulitis, Homicidal, Suicidal, threat to staff... and all critical care pts) @ -Yes this could lead to sepsis and endorgan dysfunction - Lab Data Result diagrams: 08/11/24 18:48 08/11/24 18:48 Lab Results 08/11/24 08/11/24 08/11/24 Range/Units 18:48 18:48 18:48 WBC 19.2 H (3.8-10.6) k/uL RBC 3.93 (3.80-5.40) m/uL Hgb 11.9 (11.4-16.0) gm/dL Hct 36.9 (34.0-46.0) % MCV 93.9 (80.0-100.0) fL MCH 30.2 (25.0-35.0) pg MCHC 32.2 (31.0-37.0) g/dL RDW 12.6 (11.5-15.5) % Plt Count 378 (150-450) k/uL MPV 7.3 Neutrophils % 88 % Lymphocytes % 5 % Monocytes % 4 % Eosinophils % 2 % Basophils % 0 % Neutrophils # 16.9 H (1.3-7.7) k/uL Lymphocytes # 1.0 (1.0-4.8) k/uL Monocytes # 0.7 (0-1.0) k/uL Eosinophils # 0.3 (0-0.7) k/uL Basophils # 0.0 (0-0.2) k/uL Hypochromasia Slight PT 12.4 (10.0-12.5) sec INR 1.2 H (<1.2) APTT 29.7 (22.0-30.0) sec Sodium 132 L (137-145) mmol/L Potassium 5.4 H (3.5-5.1) mmol/L Chloride 99 (98-107) mmol/L Carbon Dioxide 25 (22-30) mmol/L Anion Gap 8 mmol/L BUN 19 H (7-17) mg/dL Creatinine 0.67 (0.52-1.04) mg/dL Est GFR (CKD-EPI)AfAm >90 (>60 ml/min/1.73 sqM) Est GFR (CKD-EPI)NonAf 82 (>60 ml/min/1.73 sqM) Glucose 105 H (74-99) mg/dL Plasma Lactic Acid Michael (0.7-2.0) mmol/L Calcium 9.1 (8.4-10.2) mg/dL Total Bilirubin 0.7 (0.2-1.3) mg/dL AST 30 (14-36) U/L ALT 15 (4-34) U/L Alkaline Phosphatase 67 (38-126) U/L Total Protein 7.1 (6.3-8.2) g/dL Albumin 3.9 (3.5-5.0) g/dL Influenza Type A (PCR) (Not Detectd) Influenza Type B (PCR) (Not Detectd) RSV (PCR) (Not Detectd) SARS-CoV-2 (PCR) (Not Detectd) 08/11/24 08/11/24 Range/Units 18:48 18:48 WBC (3.8-10.6) k/uL RBC (3.80-5.40) m/uL Hgb (11.4-16.0) gm/dL Hct (34.0-46.0) % MCV (80.0-100.0) fL MCH (25.0-35.0) pg MCHC (31.0-37.0) g/dL RDW (11.5-15.5) % Plt Count (150-450) k/uL MPV Neutrophils % % Lymphocytes % % Monocytes % % Eosinophils % % Basophils % % Neutrophils # (1.3-7.7) k/uL Lymphocytes # (1.0-4.8) k/uL Monocytes # (0-1.0) k/uL Eosinophils # (0-0.7) k/uL Basophils # (0-0.2) k/uL Hypochromasia PT (10.0-12.5) sec INR (<1.2) APTT (22.0-30.0) sec Sodium (137-145) mmol/L Potassium (3.5-5.1) mmol/L Chloride (98-107) mmol/L Carbon Dioxide (22-30) mmol/L Anion Gap mmol/L BUN (7-17) mg/dL Creatinine (0.52-1.04) mg/dL Est GFR (CKD-EPI)AfAm (>60 ml/min/1.73 sqM) Est GFR (CKD-EPI)NonAf (>60 ml/min/1.73 sqM) Glucose (74-99) mg/dL Plasma Lactic Acid Michael 1.1 (0.7-2.0) mmol/L Calcium (8.4-10.2) mg/dL Total Bilirubin (0.2-1.3) mg/dL AST (14-36) U/L ALT (4-34) U/L Alkaline Phosphatase (38-126) U/L Total Protein (6.3-8.2) g/dL Albumin (3.5-5.0) g/dL Influenza Type A (PCR) Not Detected (Not Detectd) Influenza Type B (PCR) Not Detected (Not Detectd) RSV (PCR) Not Detected (Not Detectd) SARS-CoV-2 (PCR) Not Detected (Not Detectd) Disposition Clinical Impression: Pneumonia Disposition: ADMITTED IP TO THIS HOSP Referrals: Bryant Bailon MD [Primary Care Provider] - 1-2 days Time of Disposition: 20:30
[2024-08-11] MEDS: ACETAMINOPHEN TAB 500 MG TAB PO STA (20:03)
[2024-08-11] MEDS: IBUPROFEN 600 MG TAB PO STA (20:03)
[2024-08-11] MEDS: cefTRIAXone IN SWFI 1,000 MG/10 ML SYRINGE IVP STA ×2 (20:04→20:05)
[2024-08-11] MEDS: SODIUM CHLORIDE 0.9% 500 ML 500 ML IV SCH (20:11)
[2024-08-11 20:13] LABS: Basophils % (A) 0 %; Eosinophils # (A) 0.3 k/uL (0-0.7); Eosinophils % (A) 2 %; HCT 36.9 % (34.0-46.0); HGB 11.9 gm/dL (11.4-16.0); Hypochromasia Slight; Lymphocytes % (A) 5 %; MCH 30.2 pg (25.0-35.0); MCHC 32.2 g/dL (31.0-37.0); MCV 93.9 fL (80.0-100.0); Mean Platelet Volume 7.3; Monocytes # (A) 0.7 k/uL (0-1.0); Monocytes % (A) 4 %; Neutrophils # (A) 16.9 k/uL (1.3-7.7); Neutrophils % (A) 88 %; Platelet Count 378 k/uL (150-450); RBC 3.93 m/uL (3.80-5.40); RDW 12.6 % (11.5-15.5); WBC 19.2 k/uL (3.8-10.6)
[2024-08-11 20:20] LABS: INR 1.2 (<1.2); Partial Thromboplastin Time 29.7 sec (22.0-30.0); Prothrombin Time 12.4 sec (10.0-12.5)
[2024-08-11 20:25] LABS: ALT 15 U/L (4-34); African American GFR (CKD) >90 (>60 ml/min/1.73 sqM); Anion Gap 8 mmol/L; Blood Urea Nitrogen 19 mg/dL (7-17); Calcium 9.1 mg/dL (8.4-10.2); Carbon Dioxide 25 mmol/L (22-30); Chloride 99 mmol/L (98-107); Glucose 105 mg/dL (74-99); Non-African American GFR(CKD) 82 (>60 ml/min/1.73 sqM); Sodium 132 mmol/L (137-145); Total Bilirubin 0.7 mg/dL (0.2-1.3)
[2024-08-11 20:26] LABS: AST 30 U/L (14-36); Albumin 3.9 g/dL (3.5-5.0); Alkaline Phosphatase 67 U/L (38-126); Potassium 5.4 mmol/L (3.5-5.1); Total Protein 7.1 g/dL (6.3-8.2)
[2024-08-11] MEDS ORDERED: PNEUMONIA PROTOCOL UTILIZED 1 EACH MISC PO PRN (20:31)
--- NOTE | 2024-08-11 20:47 | XR ---
EXAMINATION TYPE: XR chest 2V DATE OF EXAM: 08/11/2024 COMPARISON: 12/08/2023 INDICATION: Chest pain TECHNIQUE: Frontal and lateral views of the chest are obtained. FINDINGS: The heart size is normal. The pulmonary vasculature is normal. Small posterior pleural effusions are present. IMPRESSION: 1. Small bilateral pleural effusions [facility] Batsheva Quiñonez, Workstation: [facility], 08/11/2024 8:44 PM
[2024-08-11] MEDS: AZITHROMYCIN 500 MG in SODIUM CHLORIDE 0.9% 250 ML IVPB STA (23:02)
--- NOTE | 2024-08-11 23:34 | P.HPIM ---
History of Present Illness H&P Date: 08/11/24 Chief Complaint: Shortness of breath Patient is a 84-year-old female with COPD without home oxygen, CHF presented to the ED with shortness of breath and coughing. Patient mentions her shortness of breath started 2 days ago. She has a chronic nonproductive cough which she attributes to COPD but reports worsening of the cough lately. She also has sharp pleuritic chest pain, no radiation. She denies any exertion, mentions the symptoms started at rest. She also felt fev erish, had chills and was feeling weak. She reports having a stroke 2 to 3 years ago with some residual deficits. She also reports neuropathy in her legs and she needs a wheelchair at home, lives with her sister and brother. Denies hemoptysis, abdominal pain, nausea, vomiting, muscle aches, rashes. ED documentation reviewed. Labs show WBC 19.2, lactic acid 1.1, troponin< 0.012, respiratory panel negative. Chest x-ray shows small bilateral pleural effusions. EKG shows sinus rhythm, rate 83 bpm, QTc 435 ms. She was treated with acetaminophen, azithromycin, Rocephin, ibuprofen in the ED Review of systems: Pertinent positives and negatives as discussed in HPI, a complete review of systems was performed and all other systems are negative. PMH: Heart failure, COPD, restless leg syndrome, hypertension FMH: CAD Social history: Tobacco: Former smoker Alcohol: Occasional Recreational drugs: Denies use Travel: No recent travel history Sick contacts: None Physical examination: Vitals: T 100.3 F, P 89 bpm, RR 20, BP 142/73, O2 sat 97% on 2 L nasal cannula General: non toxic, no distress, appears at stated age, obese Derm: no unusual rashes/lesions, warm Head: atraumatic, normocephalic, symmetric Eyes: EOM not intact ENT: Nose and ears atraumatic Cardiovascular: S1S2 reg, no murmur, no edema Lungs: CTA bilateral, no rhonchi, no rales, no accessory muscle use Abdominal: soft, nontender to palpation, no guarding Ext: muscle strength 4/5 in RUE and LUE, 3/5 in LLE and 2/5 in RLE Psych: Alert, oriented to person only, appropriate affect Assessment/Plan: Patient is an 84-year-old female with CHF, COPD without home oxygen presented to the ED with shortness of breath and coughing. Case discussed with ED provider and admission was accepted for hypoxic respiratory failure. #. Acute hypoxic respiratory failure,2/2 to community acquired pneumonia WBC 19.2, temperature 100.3 F, RR 20, lactic acid 1.1 Chest x-ray shows bilateral pleural effusions Respiratory panel negative Continue supplemental oxygen as required, currently on 2 L via nasal cannula Continue with azithromycin, Rocephin Blood culture, sputum culture, Legionella antigen ordered in the ED Advised to use incentive spirometry Obtain procalcitonin #. Hyponatremia Low sodium 132 Monitor BMP #. Hyperkalemia Elevated potassium 5.4 No EKG changes Monitor BMP #. History of COPD, no home oxygen Continue Ventolin #. History of CAD Continue aspirin 81 mg p.o. daily, carvedilol 3.125 mg p.o. twice daily #. History of anxiety/depression Continue citalopram 20 mg p.o. at bedtime, trazodone 100 mg p.o. at bedtime, Discontinue home med nortriptyline 20 mg p.o. at bedtime #. History of dementia Continue donepezil 10 mg p.o. at bedtime #. Hypertension Continue hydralazine 25 mg p.o. every 8 hours, losartan 20 mg p.o. daily #. Restless leg syndrome Continue ropinirole 2 mg p.o. twice daily F: None E: Replete as required N: Regular diet A: Bedrest DVT prophylaxis: Lovenox 40 mg SQ daily The patient is admitted with an anticipated more than 2 midnight stay for eval uation of shortness of breath CODE STATUS: DNR Discussed with: Patient Anticipated discharge place: Home Past Medical History Past Medical History: Heart Failure, COPD, CVA/TIA, Hypertension, Memory Impairment Additional Past Medical History / Comment(s): neuropathy, right side weakness History of Any Multi-Drug Resistant Organisms: None Reported Past Surgical History: Unable to Obtain Past Psychological History: No Psychological Hx Reported Smoking Status: Former smoker Past Alcohol Use History: Daily Past Drug Use History: None Reported Medications and Allergies Home Medications Medication Instructions Recorded Confirmed Type Acetaminophen Tab [Tylenol Tab] 500 - 1,000 mg PO Q4-6H PRN 06/21/23 08/11/24 History Albuterol Nebulized [Ventolin 2.5 mg INHALATION RT-QID PRN 06/21/23 08/11/24 History Nebulized] Apixaban [Eliquis] 2.5 mg PO BID@00,209906/21/23 08/11/24 History Aspirin 81 mg PO DAILY@79906/21/23 08/11/24 History Benefiber Sugar Free Powder 2 tsp PO BID@00,169906/21/23 08/11/24 History Benzonatate [Tessalon Perles] 100 mg PO Q8H PRN 06/21/23 08/11/24 History Citalopram Hydrobromide [CeleXA] 20 mg PO HS@209906/21/23 08/11/24 History Cyclobenzaprine [Flexeril] 10 mg PO HS PRN 06/21/23 08/11/24 History Donepezil [Aricept] 10 mg PO HS@209906/21/23 08/11/24 History Ergocalciferol [Vitamin D2 (1250 1,250 mcg PO FR@79906/21/23 08/11/24 History Mcg = 90221 Iu)] Ferrous Sulfate [Feosol] 325 mg PO Q2D@79906/21/23 08/11/24 History Lactobacillus Acidophilus 1 cap PO BID@799,209906/21/23 08/11/24 History [Acidophilus Probiotic] Losartan [Cozaar] 50 mg PO DAILY@79906/21/23 08/11/24 History Meloxicam [Mobic] 15 mg PO HS@209906/21/23 08/11/24 History Midodrine [ProAmatine] 5 mg PO Q8H PRN 06/21/23 08/11/24 History Nortriptyline [Pamelor] 20 mg PO HS@219906/21/23 08/11/24 History carvediloL [Coreg] 3.125 mg PO BID@0800,0 06/21/23 08/11/24 History rOPINIRole HCL [Requip] 2 mg PO BID PRN 06/21/23 08/11/24 History traZODone HCL [Desyrel] 100 mg PO HS@209906/21/23 08/11/24 History Acetaminophen [Tylenol 8 Hour] 650 mg PO BID@0800,199912/08/23 08/11/24 History Folic Acid 1 mg PO DAILY@79912/08/23 08/11/24 History Vitamin C/Biotin [Hair, Skin and 1 tab PO DAILY@79912/08/23 08/11/24 History Nails Chew] Cough Drop 5.4mg Lozenge 1 lozenge PO Q2H PRN 08/11/24 08/11/24 History Diclofenac Sodium Gel [Voltaren 1% 2 - 4 gm TOPICAL HS@209908/11/24 08/11/24 History Gel] HYDROcodone/APAP 5-325MG [[place] 1 tab PO Q4HR PRN 08/11/24 08/11/24 History 5-325] Miconazole 2% Cream [Monistat-Derm] 1 applic TOPICAL BID@799,209908/11/24 08/11/24 History Vitamin B-12 1000mcg Sl Tab 1,000 mcg SL DAILY@79908/11/24 08/11/24 History cloNIDine 0.2 MG/24HR PATCH 1 patch TRANSDERM FR@79908/11/24 08/11/24 History [Catapres-TTS] hydrALAZINE HCL [Apresoline] 25 mg PO Q8H PRN 08/11/24 08/11/24 History rOPINIRole HCL [Requip XL] 8 mg PO HS@199908/11/24 08/11/24 History Allergies Allergy/AdvReac Type Severity Reaction Status Date / Time Antihistamines - Alkylamine AdvReac Mild Drowsy Verified 08/11/24 19:14 codeine AdvReac Unknown Verified 08/11/24 19:14 gabapentin AdvReac Unknown Verified 08/11/24 19:14 mirtazapine AdvReac Unknown Verified 08/11/24 19:14 Physical Exam Vitals: Vital Signs Temp Pulse Resp BP Pulse Ox 08/11/24 21:26 77 16 113/54 97 08/11/24 21:11 98.3 F 08/11/24 20:12 89 16 118/67 100 08/11/24 18:31 100.3 F H 89 20 142/73 97 Intake and Output 08/11/24 08/11/24 08/12/24 14:59 22:59 06:59 Other: Weight 72.575 kg Results CBC & Chem 7: 10/04/24 18:48 08/11/24 18:48 Labs: Abnormal Lab Results - Last 24 Hours (Table) 08/11/24 08/11/24 08/11/24 Range/Units 18:48 18:48 18:48 WBC 19.2 H (3.8-10.6) k/uL Neutrophils # 16.9 H (1.3-7.7) k/uL INR 1.2 H (<1.2) Sodium 132 L (137-145) mmol/L Potassium 5.4 H (3.5-5.1) mmol/L BUN 19 H (7-17) mg/dL Glucose 105 H (74-99) mg/dL Assessment and Plan Assessment: I have seen and evaluated the patient today. I Discussed the case with the resident and agree with the resident's findings I edited the assessment and plan as necessary as documented in the resident's note.
[2024-08-12] MEDS ORDERED: BENZONATATE 100 MG CAP PO PRN (00:18)
[2024-08-12] MEDS ORDERED: hydrALAZINE HCL 25 MG TAB PO PRN (00:18)
[2024-08-12] MEDS: ALBUTEROL NEBULIZED 2.5 MG/3 ML INHALATION PRN (08:13)
[2024-08-12] MEDS: LOSARTAN 50 MG TAB PO SCH (08:24)
[2024-08-12] MEDS: carvediloL 3.125 MG TAB PO SCH (08:24)
[2024-08-12] MEDS: AZITHROMYCIN 500 MG TAB PO SCH (08:24)
[2024-08-12] MEDS: ASPIRIN 81 MG PO SCH (08:24)
--- NOTE | 2024-08-12 10:08 | XR ---
EXAMINATION TYPE: XR chest 2V DATE OF EXAM: 08/12/2024 COMPARISON: 08/11/2024 INDICATION: Pneumonia TECHNIQUE: Frontal and lateral views of the chest are obtained. FINDINGS: The heart size is normal. The pulmonary vasculature is normal. Small left pleural effusion is present. Sternotomy wires are present from prior surgery right shoulder prosthesis is present.. IMPRESSION: 1. Small stable left pleural effusion. [facility], Workstation: [facility], 08/12/2024 10:06 AM
[2024-08-12 10:12] LABS: HCT 31.4 % (37.2-46.3); HGB 9.8 g/dL (12.0-15.0); MCH 30.2 pg (27.0-32.0); MCHC 31.2 g/dL (32.0-37.0); MCV 96.9 FL (80.0-97.0); Mean Platelet Volume 10.1 FL (9.5-12.2); NRBC Per 100 WBC 0 X 10*3/uL (0.00-0.01); Platelet Count 340 X 10*3/uL (140-440); RBC 3.24 X 10*6/uL (4.10-5.20); RDW 12.4 % (11.5-14.5); WBC 14.22 X 10*3/uL (4.50-10.00)
[2024-08-12 10:13] LABS: BUN/Creat Ratio 19.62 Ratio (12.00-20.00); Blood Urea Nitrogen 15.7 mg/dL (9.0-27.0); Calcium 8.4 mg/dL (8.7-10.3); Chloride 103 mmol/L (96-109); Glucose 91 mg/dL (70-110); Potassium 5.1 mmol/L (3.5-5.5); Sodium 138 mmol/L (135-145)
[2024-08-12] MEDS: APIXABAN 2.5 MG TABLET PO SCH (13:21)
--- NOTE | 2024-08-12 15:12 | P.PN ---
Subjective Progress Note Date: 08/12/24 Objective - Vital Signs Vital signs: Vital Signs Temp 98.6 F 08/12/24 14:28 Pulse 82 08/12/24 14:28 Resp 16 08/12/24 14:28 BP 129/61 08/12/24 14:28 Pulse Ox 94 L 08/12/24 14:28 FiO2 Intake & Output 08/11/24 08/12/24 08/12/24 18:59 06:59 18:59 Weight 72.575 kg 72.575 kg Other: Voiding Method Diaper Bedpan # Voids 2 - Constitutional General appearance: Present: mild distress - Respiratory Respiratory: bilateral: diminished - Cardiovascular Rhythm: regular - Gastrointestinal General gastrointestinal: Present: normal bowel sounds, soft - Psychiatric Psychiatric: Present: appropriate affect - Labs CBC & Chem 7: 08/12/24 03:07 08/12/24 03:07 Labs: Abnormal Lab Results - Last 24 Hours (Table) 08/11/24 08/11/24 08/11/24 Range/Units 18:48 18:48 18:48 WBC 19.2 H (3.8-10.6) k/uL RBC (4.10-5.20) X 10*6/uL Hgb (12.0-15.0) g/dL Hct (37.2-46.3) % MCHC (32.0-37.0) g/dL Neutrophils # 16.9 H (1.3-7.7) k/uL INR 1.2 H (<1.2) Sodium 132 L (137-145) mmol/L Potassium 5.4 H (3.5-5.1) mmol/L BUN 19 H (7-17) mg/dL Glucose 105 H (74-99) mg/dL Calcium (8.7-10.3) mg/dL 08/12/24 08/12/24 Range/Units 03:07 03:07 WBC 14.22 H (3.8-10.6) k/uL RBC 3.24 L (4.10-5.20) X 10*6/uL Hgb 9.8 L (12.0-15.0) g/dL Hct 31.4 L (37.2-46.3) % MCHC 31.2 L (32.0-37.0) g/dL Neutrophils # (1.3-7.7) k/uL INR (<1.2) Sodium (137-145) mmol/L Potassium (3.5-5.1) mmol/L BUN (7-17) mg/dL Glucose (74-99) mg/dL Calcium 8.4 L (8.7-10.3) mg/dL - Imaging and Cardiology Chest x-ray: report reviewed Assessment and Plan (1) Pneumonia Narrative/Plan: Patient is short of breath, continue antibiotics Pro-Tamir low. The patient now 94% on room air. Still has elevated white count of 14.2. Chest x-ray report showed stable left pleural effusion. Current Visit: Yes Status: Acute Code(s): J18.9 - PNEUMONIA, UNSPECIFIED ORGANISM SNOMED Code(s): 691368452 (2) COPD (chronic obstructive pulmonary disease) Narrative/Plan: Continue nebs as needed Current Visit: Yes Status: Acute Code(s): J44.9 - CHRONIC OBSTRUCTIVE PULMONARY DISEASE, UNSPECIFIED SNOMED Code(s): 87096039 (3) CAD (coronary artery disease) Narrative/Plan: Continue Home regimen patient without chest pain Current Visit: Yes Status: Acute Code(s): I25.10 - ATHSCL HEART DISEASE OF [place] CORONARY ARTERY W/O ANG PCTRS SNOMED Code(s): 75022302
[2024-08-12] MEDS: traZODone HCL 100 MG TAB PO SCH (20:45)
[2024-08-12] MEDS: CITALOPRAM HYDROBROMIDE 20 MG TAB PO SCH (20:45)
[2024-08-12] MEDS: DONEPEZIL 10 MG TAB PO SCH (22:08)
[2024-08-13] MEDS: guaiFENesin 600 MG TABLET.ER PO SCH (10:29)
[2024-08-13] MEDS: IPRATROPIUM-ALBUTEROL 3 ML NEB INHALATION SCH (11:35)
[2024-08-13] MEDS: methylPREDNISolone SOD SUCCI 125 MG/2 ML VIAL IV SCH (11:38)
[2024-08-13] MEDS: HYDROcodone/APAP 5-325MG 1 EACH TAB PO PRN (11:38)
--- NOTE | 2024-08-13 16:52 | P.PN ---
Subjective Progress Note Date: 08/13/24 Patient is a 84-year-old female initially admitted for community-acquired pneumonia. Found to have acute exacerbation of COPD Patient seen and examined at bedside. Feeling very weak. Still with some wheezing and shortness of breath. States she is eating and drinking well. Complains of chronic pain and not having pain medications reordered from home. Vital signs reviewed General: Nontoxic, no distress, appears at stated age Cardiovascular: S1S2 reg, no murmur Lungs: Rhonchi bilateral, no rhonchi, no rales, no accessory muscle use Abdominal: Soft, nontender to palpation, no guarding Ext: No gross muscle atrophy, no edema b/l lower extremities, no contractures Neuro: CN II-XI grossly intact, no focal neuro deficits Psych: Alert, oriented, appropriate affect Assessment/Plan: Acute bronchitis with acute exacerbation of COPD with sepsis without end-organ damage with a temperature of 100.3 and joint with COVID-19 -Clinically doubt pneumonia given no infiltrate on chest x-ray and normal procalcitonin -Discontinue Rocephin and Zithromax. Start doxycycline 100 mg twice daily orally -Start Solu-Medrol 60 mg IV every 6 hours, add DuoNebs 4 times daily scheduled in addition to as needed albuterol -Mucinex 600 mg p.o. every 12 hours -Repeat CBC and BMP in a.m. Hypertension, coronary artery disease -Coreg 3.125 mg p.o. twice daily, Catapres 0.2 mg patch daily, Cozaar 50 mg daily Chronic: CAD, dementia, Prior CVA, RLS Hyperkalemia, resolved Hyponatremia, resolved Dehydration, resolved Imaging: No new lab work available for review Data Review: No new blood work available for review DVT prophylaxis: Eliquis Anticipated discharge date: Home in 24-48 hours with This dictation was prepared using [employer] 3D voice recognition software. Though every attempt is made to correct errors during dictation some may still exist. Objective - Vital Signs Vital signs: Vital Signs Temp 98.4 F 08/13/24 13:58 Pulse 76 08/13/24 16:25 Resp 14 08/13/24 13:58 BP 109/68 08/13/24 13:58 Pulse Ox 93 L 08/13/24 13:58 FiO2 Intake & Output 08/12/24 08/13/24 08/13/24 18:59 06:59 18:59 Intake Total 298 Output Total 600 Balance -302 Intake: Oral 298 Output: Urine 600 Other: Voiding Method Bedpan Diaper Incontinent External Catheter External Catheter # Voids 2 4 - Labs CBC & Chem 7: 08/12/24 03:07 08/12/24 03:07 Labs: Microbiology - Last 24 Hours (Table) 08/11/24 19:50 Blood Culture - Preliminary Blood
[2024-08-13] MEDS ORDERED: [UNRECOGNIZED DRUG - OTHER] PO SCH (17:00)
[2024-08-13] MEDS: ACETAMINOPHEN TAB 325 MG TAB PO SCH (20:40)
[2024-08-13] MEDS: LACTOBACILLUS ACIDOPHILUS/PECT 1 EACH CAPSULE PO SCH (20:40)
[2024-08-13] MEDS: NORTRIPTYLINE 10 MG CAP PO SCH (20:40)
[2024-08-13] MEDS: DOXYCYCLINE 100 MG CAP PO SCH (20:41)
[2024-08-13] MEDS: MELOXICAM 7.5 MG TAB PO SCH (20:41)
[2024-08-13] MEDS: CYCLOBENZAPRINE 10 MG TAB PO PRN (20:42)
[2024-08-13] MEDS: DICLOFENAC SODIUM GEL 50 GM TUBE TOPICAL SCH (21:33)
[2024-08-14 01:21] VITALS: RESP 16
[2024-08-14 05:23] LABS: HCT 32.1 % (34.0-46.0); HGB 10.4 gm/dL (11.4-16.0); MCH 30.4 pg (25.0-35.0); MCHC 32.3 g/dL (31.0-37.0); MCV 94.1 fL (80.0-100.0); Mean Platelet Volume 8.2; Platelet Count 362 k/uL (150-450); RBC 3.42 m/uL (3.80-5.40); RDW 12.8 % (11.5-15.5); WBC 8.5 k/uL (3.8-10.6)
[2024-08-14 05:46] LABS: African American GFR (CKD) 75 (>60 ml/min/1.73 sqM); Anion Gap 5 mmol/L; Blood Urea Nitrogen 34 mg/dL (7-17); Calcium 8.9 mg/dL (8.4-10.2); Carbon Dioxide 24 mmol/L (22-30); Chloride 103 mmol/L (98-107); Glucose 156 mg/dL (74-99); Non-African American GFR(CKD) 65 (>60 ml/min/1.73 sqM); Sodium 132 mmol/L (137-145)
[2024-08-14 08:12] VITALS: BP 143/67; TEMP 97.5
[2024-08-14] MEDS: ASCORBIC ACID 500 MG TAB PO SCH (08:40)
[2024-08-14 08:48] VITALS: PULSE 80
--- NOTE | 2024-08-14 10:43 | P.DS ---
Providers Date of admission: 08/13/24 16:46 Expected date of discharge: 08/14/24 Attending physician: Sunny Herman MD Primary care physician: Bryant Núñez [place] Course: 84 year old F with PMH of COPD, HTN, Dementia, CAD, h/o CVA, RLS presented to the ED for SOB and cough. in the ED, she underwent extensive evaluation. T-max 100.3F, BP 142/73, RR 20, HR 89, 97% on 2 L NC. CBC, coag panel, CMP significant for WBC 19.2, INR 1.2, Na 132, K 5.4, BUN 19, glucose 105. Lactic acid 1.1. Troponin less than 0.0123. EKG sinus rhythm. Chest x-ray small bilateral pleural effusions. Patient is admitted for COPD exacerbation. Started on bronchodilators, Solu-Medrol, Rocephin and azithromycin. Pro-calcitonin came back negative, low likelihood for pneumonia, antibiotics switched to doxycycline by mouth for treatment of acute bronchitis. Her symptoms progressively improved. 08/14 Patient was seen and examined. No acute events overnight. Patient reports breathing at baseline. She is requesting to be discharged home.CBC and BMP significant for RBC 3.42, Hg 10.4, Hct 32.1, Na 132, BUN 34, glu 156. Discharge plan: Continue doxycycline 100 mg by mouth twice a day for 2 more days to complete a total of 5 days antibiotics. Prescribed prednisone 40 mg by mouth daily for 4 days to complete a total of 5 days steroids. General: non toxic, no distress, appears at stated age Derm: warm, dry Head: atraumatic, normocephalic, symmetric Eyes: EOMI, no lid lag, anicteric sclera Mouth: no lip lesion, mucus membranes moist Cardiovascular: S1S2 reg, no murmur Lungs: Decreased BS bilateral, no rhonchi, no rales, no accessory muscle use Ext: no gross muscle atrophy, no edema, no contractures Psych: Alert, oriented, appropriate affect Discharge Diagnosis: Acute bronchitis with acute exacerbation of COPD with sepsis Hypertension Dementia CAD h/o CVA RLS Resolved: HypoNa, HyperK This complex discharge took 35 minutes to complete. Patient Condition at Discharge: Stable Plan - Discharge Summary New Discharge Prescriptions: New Doxycycline [Vibramycin] 100 mg PO BID #4 cap predniSONE 40 mg PO DAILY 4 Days #16 tab Continue traZODone HCL [Desyrel] 100 mg PO HS@2100 Ergocalciferol [Vitamin D2 (1250 Mcg = 05439 Iu)] 1,250 mcg PO FR@0800 Ferrous Sulfate [Iron (65 MG Elemental)] 325 mg PO Q2D@0800 Donepezil [Aricept] 10 mg PO HS@2100 Apixaban [Eliquis] 2.5 mg PO BID@0800,2100 Aspirin 81 mg PO DAILY@0800 Vitamin C/Biotin [Hair, Skin and Nails Chew] 1 tab PO DAILY@0800 Vitamin B-12 1000mcg Sl Tab 1,000 mcg SL DAILY@0800 Diclofenac Sodium Gel [Voltaren 1% Gel] 2 - 4 gm TOPICAL HS@2100 hydrALAZINE HCL [Apresoline] 25 mg PO Q8H PRN PRN Reason: SBP greater than 150 HYDROcodone/APAP 5-325MG [[place] 5-325] 1 tab PO Q4HR PRN PRN Reason: Pain rOPINIRole HCL [Requip XL] 8 mg PO HS@1999 Acetaminophen Tab [Tylenol] 500 - 1,000 mg PO Q4-6H PRN PRN Reason: Fever And/ Or Pain rOPINIRole HCL [Requip] 2 mg PO BID PRN PRN Reason: RLS Midodrine [ProAmatine] 5 mg PO Q8H PRN PRN Reason: SBP less than 100 Benzonatate [Tessalon Perles] 100 mg PO Q8H PRN PRN Reason: Cough & Congestion Albuterol Nebulized [Ventolin Nebulized] 2.5 mg INHALATION RT-QID PRN PRN Reason: Shortness Of Breath Nortriptyline [Pamelor] 20 mg PO HS@2200 Meloxicam [Mobic] 15 mg PO HS@2100 Losartan [Cozaar] 50 mg PO DAILY@0800 carvediloL [Coreg] 3.125 mg PO BID@0800,1700 Cyclobenzaprine [Flexeril] 10 mg PO HS PRN PRN Reason: Muscle Spasm Citalopram Hydrobromide [CeleXA] 20 mg PO HS@2100 Benefiber Sugar Free Powder 2 tsp PO BID@0800,1700 Lactobacillus Acidophilus [Acidophilus Probiotic] 1 cap PO BID@0800,2100 Acetaminophen [Tylenol 8 Hour] 650 mg PO BID@0800,2000 Folic Acid 1 mg PO DAILY@0800 Cough Drop 5.4mg Lozenge 1 lozenge PO Q2H PRN PRN Reason: Cough cloNIDine 0.2 MG/24HR PATCH [Catapres-TTS] 1 patch TRANSDERM FR@08 Miconazole 2% Cream [Monistat-Derm] 1 applic TOPICAL BID@0800,2099 Discharge Medication List Acetaminophen Tab [Tylenol] 500 - 1,000 mg PO Q4-6H PRN 06/21/23 [History] Albuterol Nebulized [Ventolin Nebulized] 2.5 mg INHALATION RT-QID PRN 06/21/23 [History] Apixaban [Eliquis] 2.5 mg PO BID@799,209906/21/23 [History] Aspirin 81 mg PO DAILY@79906/21/23 [History] Benefiber Sugar Free Powder 2 tsp PO BID@0800,17006/21/23 [History] Benzonatate [Tessalon Perles] 100 mg PO Q8H PRN 06/21/23 [History] Citalopram Hydrobromide [CeleXA] 20 mg PO HS@209906/21/23 [History] Cyclobenzaprine [Flexeril] 10 mg PO HS PRN 06/21/23 [History] Donepezil [Aricept] 10 mg PO HS@209906/21/23 [History] Ergocalciferol [Vitamin D2 (1250 Mcg = 23329 Iu)] 1,250 mcg PO FR@79906/21/23 [History] Ferrous Sulfate [Iron (65 MG Elemental)] 325 mg PO Q2D@79906/21/23 [History] Lactobacillus Acidophilus [Acidophilus Probiotic] 1 cap PO BID@799,209906/21/23 [History] Losartan [Cozaar] 50 mg PO DAILY@79906/21/23 [History] Meloxicam [Mobic] 15 mg PO HS@209906/21/23 [History] Midodrine [ProAmatine] 5 mg PO Q8H PRN 06/21/23 [History] Nortriptyline [Pamelor] 20 mg PO HS@219906/21/23 [History] carvediloL [Coreg] 3.125 mg PO BID@0800,1700 06/21/23 [History] rOPINIRole HCL [Requip] 2 mg PO BID PRN 06/21/23 [History] traZODone HCL [Desyrel] 100 mg PO HS@209906/21/23 [History] Acetaminophen [Tylenol 8 Hour] 650 mg PO BID@08,199912/08/23 [History] Folic Acid 1 mg PO DAILY@79912/08/23 [History] Vitamin C/Biotin [Hair, Skin and Nails Chew] 1 tab PO DAILY@79912/08/23 [History] Cough Drop 5.4mg Lozenge 1 lozenge PO Q2H PRN 08/11/24 [History] Diclofenac Sodium Gel [Voltaren 1% Gel] 2 - 4 gm TOPICAL HS@209908/11/24 [History] HYDROcodone/APAP 5-325MG [[place] 5-325] 1 tab PO Q4HR PRN 08/11/24 [History] Miconazole 2% Cream [Monistat-Derm] 1 applic TOPICAL BID@799,209908/11/24 [History] Vitamin B-12 1000mcg Sl Tab 1,000 mcg SL DAILY@79908/11/24 [History] cloNIDine 0.2 MG/24HR PATCH [Catapres-TTS] 1 patch TRANSDERM FR@79908/11/24 [History] hydrALAZINE HCL [Apresoline] 25 mg PO Q8H PRN 08/11/24 [History] rOPINIRole HCL [Requip XL] 8 mg PO HS@199908/11/24 [History] Doxycycline [Vibramycin] 100 mg PO BID #4 cap 08/14/24 [Rx] predniSONE 40 mg PO DAILY 4 Days #16 tab 08/14/24 [Rx] Follow up Appointment(s)/Referral(s): Bryant Bailon MD [Primary Care Provider] - 1-2 days Discharge Disposition: HOME SELF-CARE
[2024-08-15] MEDS ORDERED: FERROUS SULFATE 325 MG TAB PO SCH (08:00)
[2024-08-18] MEDS ORDERED: cloNIDine 0.2 MG/24HR PATCH TRANSDERM SCH (08:00)
[2024-08-18] MEDS ORDERED: ERGOCALCIFEROL 1,250 MCG (50,000 IU) CAPSULE PO SCH (08:00)
== END 2024-08-14 12:15 | disposition home or self-care (01) | DRG 871 ==
LOC: EC 18:28 → SUPCPDRO 18:28 → 6NMEDSUR 20:32 → OBSVTOIN 08-13 16:46
PROVIDERS: ADMIT Internal Medicine; ATTEND Internal Medicine
DX: A41.9 Sepsis, unspecified organism (principal); J96.01 Acute respiratory failure with hypoxia; J44.0 Chronic obstructive pulmonary disease with (acute) lower respiratory infection; J44.1 Chronic obstructive pulmonary disease with (acute) exacerbation; F03.94 Unspecified dementia, unspecified severity, with anxiety; F03.93 Unspecified dementia, unspecified severity, with mood disturbance; E87.1 Hypo-osmolality and hyponatremia; J20.9 Acute bronchitis, unspecified; F32.A Depression, unspecified; Z66 Do not resuscitate; G62.9 Polyneuropathy, unspecified; I50.9 Heart failure, unspecified; I25.10 Atherosclerotic heart disease of native coronary artery without angina pectoris; I11.0 Hypertensive heart disease with heart failure; G89.29 Other chronic pain; G25.81 Restless legs syndrome; E87.5 Hyperkalemia; E86.0 Dehydration; Z87.891 Personal history of nicotine dependence; Z79.899 Other long term (current) drug therapy; Z79.82 Long term (current) use of aspirin; Z79.01 Long term (current) use of anticoagulants; I69.30 Unspecified sequelae of cerebral infarction; Z88.5 Allergy status to narcotic agent; Z88.8 Allergy status to other drugs, medicaments and biological substances; Z99.3 Dependence on wheelchair
CPT/HCPCS: 36415; 71046; 80048; 80053; 83605; 84145; 84484; 85025; 85027; 85610; 85730; 87040; 87070; 87077; 87186; 87205; 87449; 87636; 93005; 94640; 96374; 99285

== ENCOUNTER 2025-01-05 10:59 | Emergency (ER) | payer MEDICARE ==
[2025-01-05 11:09] VITALS: TEMP 98.2
[2025-01-05 11:59] LABS: Basophils % (A) 0 %; Eosinophils # (A) 0.1 k/uL (0-0.7); Eosinophils % (A) 2 %; HGB 9.2 gm/dL (11.4-16.0); Hypochromasia Slight; Lymphocytes # (A) 1.2 k/uL (1.0-4.8); Lymphocytes % (A) 28 %; MCHC 30.8 g/dL (31.0-37.0); MCV 94.2 fL (80.0-100.0); Mean Platelet Volume 7.9; Monocytes # (A) 0.3 k/uL (0-1.0); Monocytes % (A) 7 %; Neutrophils # (A) 2.7 k/uL (1.3-7.7); Neutrophils % (A) 60 %; Platelet Count 313 k/uL (150-450); RBC 3.18 m/uL (3.80-5.40); RDW 13.3 % (11.5-15.5); WBC 4.4 k/uL (3.8-10.6)
--- NOTE | 2025-01-05 12:08 | ED ---
General Adult HPI - General Chief complaint: Weakness Stated complaint: Weakness Time Seen by Provider: 01/05/25 11:06 Source: EMS, RN notes reviewed Mode of arrival: EMS Limitations: no limitations - History of Present Illness Initial comments: 84-year-old female presents to the emergency department for evaluation of generalized weakness, cough. Patient reports that this been going on for around a week. She notes that she has been coughing frequently. She also reports that she has some shortness of breath. She denies any fever, chills. Denies chest pain or lower extremity swelling. Notes that influenza A is going around her living facility. - Related Data Home Medications Medication Instructions Recorded Confirmed Acetaminophen Tab [Tylenol] 500 - 1,000 mg PO Q4-6H PRN 06/21/23 08/11/24 Albuterol Nebulized [Ventolin 2.5 mg INHALATION RT-QID PRN 06/21/23 08/11/24 Nebulized] Apixaban [Eliquis] 2.5 mg PO BID@08,209906/21/23 08/11/24 Aspirin 81 mg PO DAILY@79906/21/23 08/11/24 Benefiber Sugar Free Powder 2 tsp PO BID@0800,1700 06/21/23 08/11/24 Benzonatate [Tessalon Perles] 100 mg PO Q8H PRN 06/21/23 08/11/24 Citalopram Hydrobromide [CeleXA] 20 mg PO HS@209906/21/23 08/11/24 Cyclobenzaprine [Flexeril] 10 mg PO HS PRN 06/21/23 08/11/24 Donepezil [Aricept] 10 mg PO HS@209906/21/23 08/11/24 Ergocalciferol [Vitamin D2 (1250 1,250 mcg PO FR@79906/21/23 08/11/24 Mcg = 30512 Iu)] Ferrous Sulfate [Iron (65 MG 325 mg PO Q2D@79906/21/23 08/11/24 Elemental)] Lactobacillus Acidophilus 1 cap PO BID@0800,209906/21/23 08/11/24 [Acidophilus Probiotic] Losartan [Cozaar] 50 mg PO DAILY@79906/21/23 08/11/24 Meloxicam [Mobic] 15 mg PO HS@209906/21/23 08/11/24 Midodrine [ProAmatine] 5 mg PO Q8H PRN 06/21/23 08/11/24 Nortriptyline [Pamelor] 20 mg PO HS@219906/21/23 08/11/24 carvediloL [Coreg] 3.125 mg PO BID@0800,1700 06/21/23 08/11/24 rOPINIRole HCL [Requip] 2 mg PO BID PRN 06/21/23 08/11/24 traZODone HCL [Desyrel] 100 mg PO HS@209906/21/23 08/11/24 Acetaminophen [Tylenol 8 Hour] 650 mg PO BID@799,199912/08/23 08/11/24 Folic Acid 1 mg PO DAILY@79912/08/23 08/11/24 Vitamin C/Biotin [Hair, Skin and 1 tab PO DAILY@79912/08/23 08/11/24 Nails Chew] Cough Drop 5.4mg Lozenge 1 lozenge PO Q2H PRN 08/11/24 08/11/24 Diclofenac Sodium Gel [Voltaren 1% 2 - 4 gm TOPICAL HS@209908/11/24 08/11/24 Gel] HYDROcodone/APAP 5-325MG [[place] 1 tab PO Q4HR PRN 08/11/24 08/11/24 5-325] Miconazole 2% Cream [Monistat-Derm] 1 applic TOPICAL BID@799,209908/11/24 08/11/24 Vitamin B-12 1000mcg Sl Tab 1,000 mcg SL DAILY@79908/11/24 08/11/24 cloNIDine 0.2 MG/24HR PATCH 1 patch TRANSDERM FR@79908/11/24 08/11/24 [Catapres-TTS] hydrALAZINE HCL [Apresoline] 25 mg PO Q8H PRN 08/11/24 08/11/24 rOPINIRole HCL [Requip XL] 8 mg PO HS@199908/11/24 08/11/24 Previous Rx's Medication Instructions Recorded Doxycycline [Vibramycin] 100 mg PO BID #4 cap 08/14/24 predniSONE 40 mg PO DAILY 4 Days #16 tab 08/14/24 Allergies Allergy/AdvReac Type Severity Reaction Status Date / Time Antihistamines - Alkylamine AdvReac Mild Drowsy Verified 01/05/25 11:09 codeine AdvReac Unknown Verified 01/05/25 11:09 gabapentin AdvReac Unknown Verified 01/05/25 11:09 mirtazapine AdvReac Unknown Verified 01/05/25 11:09 Review of Systems ROS Statement: Those systems with pertinent positive or pertinent negative responses have been documented in the HPI. ROS Other: All systems not noted in ROS Statement are negative. Past Medical History Past Medical History: Atrial Fibrillation, Heart Failure, COPD, CVA/TIA, Hypertension, Memory Impairment Additional Past Medical History / Comment(s): neuropathy, right side weakness History of Any Multi-Drug Resistant Organisms: None Reported Past Surgical History: Unable to Obtain Past Psychological History: No Psychological Hx Reported Smoking Status: Former smoker Past Alcohol Use History: Daily Past Drug Use History: None Reported General Exam Limitations: no limitations General appearance: alert, in no apparent distress Head exam: Present: atraumatic, normocephalic, normal inspection Eye exam: Present: normal appearance, PERRL, EOMI. Absent: scleral icterus, conjunctival injection, periorbital swelling ENT exam: Present: normal exam, mucous membranes moist Neck exam: Present: normal inspection. Absent: tenderness, meningismus, lymphadenopathy Respiratory exam: Present: wheezes. Absent: respiratory distress, rales, rhonchi, stridor Cardiovascular Exam: Present: regular rate, normal rhythm, normal heart sounds. Absent: systolic murmur, diastolic murmur, rubs, gallop, clicks Extremities exam: Present: normal inspection, full ROM, normal capillary refill. Absent: tenderness, pedal edema, joint swelling, calf tenderness Neurological exam: Present: alert, oriented X3 Psychiatric exam: Present: normal affect, normal mood Skin exam: Present: warm, dry, intact, normal color. Absent: rash Course Vital Signs 01/05/25 01/05/25 01/05/25 11:00 13:00 13:09 Temperature 98.2 F Pulse Rate 61 68 70 Respiratory 18 Rate Blood Pressure 118/65 O2 Sat by Pulse 93 L Oximetry 01/05/25 14:00 Temperature Pulse Rate 65 Respiratory 17 Rate Blood Pressure 120/96 O2 Sat by Pulse 93 L Oximetry Medical Decision Making - Medical Decision Making Was pt. sent in by a medical professional or institution ([facility], LITIGATION ASSOCIATE, urgent care, hospital, or [facility]...) When possible be specific @ -No Did you speak to anyone other than the patient for history (EMS, parent, family, police, friend...)? What history was obtained from this source @ -No Did you review nursing and triage notes (agree or disagree)? Why? @ -I reviewed and agree with nursing and triage notes Were old charts reviewed (outside hosp., previous admission, EMS record, old EKG, old radiological studies, urgent care reports/EKG's, [facility] records)? Report findings @ -No old charts were reviewed Differential Diagnosis (chest pain, altered mental status, abdominal pain women, abdominal pain men, vaginal bleeding, weakness, fever, dyspnea, syncope, headache, dizziness, GI bleed, back pain, seizure, CVA, palpatations, mental health, musculoskeletal)? @ -Differential Dyspnea: Coronary syndrome, arrhythmia, tamponade, asthma, COPD, pulmonary embolism, pneumonia, pneumothorax, pulmonary effusion, anaphylaxis, diabetic ketoacidosis, flailed chest, pulmonary contusion, diaphragmatic rupture, anemia, neuromuscular, this is not meant to be an all-inclusive list. EKG interpreted by me (3pts min.). @ -EKG at 1142 shows sinus rhythm rate 61, DC 206, QRS 87, QT/QTc [id number] X-rays interpreted by me (1pt min.). @ -Chest x-ray shows Small bilateral pleural effusion stable from prior CT interpreted by me (1pt min.). @ -None done U/S interpreted by me (1pt. min.). @ -None done What testing was considered but not performed or refused? (CT, X-rays, U/S, labs)? Why? @ -None What meds were considered but not given or refused? Why? @ -None Did you discuss the management of the patient with other professionals (professionals i.e. [facility], LITIGATION ASSOCIATE, lab, RT, psych nurse, social media content manager, high worker, teacher, hydrological technical officer, rehabilitation caseworker)? Give summary @ -No Was smoking cessation discussed for >3mins.? @ -No Was critical care preformed (if so, how long)? @ -No Were there social determinants of health that impacted care today? How? (Homelessness, low income, unemployed, alcoholism, drug addiction, transportation, low edu. Level, literacy, decrease access to med. care, group home, rehab)? @ -No Was there de-escalation of care discussed even if they declined (Discuss DNR or withdrawal of care, Hospice)? DNR status @ -No What co-morbidities impacted this encounter? (DM, HTN, Smoking, COPD, CAD, Cancer, CVA, ARF, Chemo, Hep., AIDS, mental health diagnosis, sleep apnea, morbid obesity)? @ -COPD Was patient admitted / discharged? Hospital course, mention meds given and route, prescriptions, significant lab abnormalities, going to OR and other pertinent info. @ -Discharge.Patient presented emergency department for evaluation of cough, congestion. Laboratory studies obtained revealing no significant leukocytosis, hemoglobin 9.2. CMP shows mild hyponatremia, mild hypocalcemia. Patient was also tested for COVID, influenza, RSV. She tested positive for influenza A. Patient's O2 saturation 93% on room air which is reasonable for the patient with COPD. She will be discharged home back to her living facility. She is understanding agreeable with this plan. Patient stable upon discharge. Case discussed with Dr. Carbajal Undiagnosed new problem with uncertain prognosis? @ -No Drug Therapy requiring intensive monitoring for toxicity (Heparin, Nitro, Insulin, Cardizem)? @ -No Were any procedures done? @ -No Diagnosis/symptom? @ -influenza A Acute, or Chronic, or Acute on Chronic? @ -acute] Uncomplicated (without systemic symptoms) or Complicated (systemic symptoms)? @ -Uncomplicated Side effects of treatment? @ -No Exacerbation, Progression, or Severe Exacerbation? @ -No Poses a threat to life or bodily function? How? (Chest pain, USA, SD, pneumonia, PE, COPD, DKA, ARF, appy, cholecystitis, CVA, Diverticulitis, Homicidal, Suicidal, threat to staff... and all critical care pts) @ -No - Lab Data Result diagrams: 01/05/25 11:31 01/05/25 11:31 Lab Results 01/05/25 01/05/25 01/05/25 Range/Units 11:29 11:31 11:31 WBC 4.4 (3.8-10.6) k/uL RBC 3.18 L (3.80-5.40) m/uL Hgb 9.2 L (11.4-16.0) gm/dL Hct 30.0 L (34.0-46.0) % MCV 94.2 (80.0-100.0) fL MCH 29.0 (25.0-35.0) pg MCHC 30.8 L (31.0-37.0) g/dL RDW 13.3 (11.5-15.5) % Plt Count 313 (150-450) k/uL MPV 7.9 Neutrophils % 60 % Lymphocytes % 28 % Monocytes % 7 % Eosinophils % 2 % Basophils % 0 % Neutrophils # 2.7 (1.3-7.7) k/uL Lymphocytes # 1.2 (1.0-4.8) k/uL Monocytes # 0.3 (0-1.0) k/uL Eosinophils # 0.1 (0-0.7) k/uL Basophils # 0.0 (0-0.2) k/uL Hypochromasia Slight PT 12.5 (10.0-12.5) sec INR 1.2 H (<1.2) APTT 29.4 (22.0-30.0) sec Sodium (137-145) mmol/L Potassium (3.5-5.1) mmol/L Chloride (98-107) mmol/L Carbon Dioxide (22-30) mmol/L Anion Gap mmol/L BUN (7-17) mg/dL Creatinine (0.52-1.04) mg/dL Est GFR (CKD-EPI)AfAm (>60 ml/min/1.73 sqM) Est GFR (CKD-EPI)NonAf (>60 ml/min/1.73 sqM) Glucose (74-99) mg/dL Calcium (8.4-10.2) mg/dL Total Bilirubin (0.2-1.3) mg/dL AST (14-36) U/L ALT (4-34) U/L Alkaline Phosphatase (38-126) U/L Total Protein (6.3-8.2) g/dL Albumin (3.5-5.0) g/dL Influenza Type A (PCR) Detected A (Not Detectd) Influenza Type B (PCR) Not Detected (Not Detectd) RSV (PCR) Not Detected (Not Detectd) SARS-CoV-2 (PCR) Not Detected (Not Detectd) 01/05/25 Range/Units 11:31 WBC (3.8-10.6) k/uL RBC (3.80-5.40) m/uL Hgb (11.4-16.0) gm/dL Hct (34.0-46.0) % MCV (80.0-100.0) fL MCH (25.0-35.0) pg MCHC (31.0-37.0) g/dL RDW (11.5-15.5) % Plt Count (150-450) k/uL MPV Neutrophils % % Lymphocytes % % Monocytes % % Eosinophils % % Basophils % % Neutrophils # (1.3-7.7) k/uL Lymphocytes # (1.0-4.8) k/uL Monocytes # (0-1.0) k/uL Eosinophils # (0-0.7) k/uL Basophils # (0-0.2) k/uL Hypochromasia PT (10.0-12.5) sec INR (<1.2) APTT (22.0-30.0) sec Sodium 131 L (137-145) mmol/L Potassium 5.3 H (3.5-5.1) mmol/L Chloride 100 (98-107) mmol/L Carbon Dioxide 25 (22-30) mmol/L Anion Gap 6 mmol/L BUN 15 (7-17) mg/dL Creatinine 0.80 (0.52-1.04) mg/dL Est GFR (CKD-EPI)AfAm 80 (>60 ml/min/1.73 sqM) Est GFR (CKD-EPI)NonAf 69 (>60 ml/min/1.73 sqM) Glucose 98 (74-99) mg/dL Calcium 8.2 L (8.4-10.2) mg/dL Total Bilirubin 0.4 (0.2-1.3) mg/dL AST 26 (14-36) U/L ALT 15 (4-34) U/L Alkaline Phosphatase 73 (38-126) U/L Total Protein 5.8 L (6.3-8.2) g/dL Albumin 3.2 L (3.5-5.0) g/dL Influenza Type A (PCR) (Not Detectd) Influenza Type B (PCR) (Not Detectd) RSV (PCR) (Not Detectd) SARS-CoV-2 (PCR) (Not Detectd) Disposition Clinical Impression: COPD (chronic obstructive pulmonary disease), Influenza A Disposition: HOME SELF-CARE Condition: Stable Instructions (If sedation given, give patient instructions): Influenza (ED) Additional Instructions: Return to the emergency department for new or worsening symptoms. Is patient prescribed a controlled substance at d/c from ED?: No Referrals: Bryant Bailon MD [Primary Care Provider] - 1-2 days
[2025-01-05 12:11] LABS: ALT 15 U/L (4-34); AST 26 U/L (14-36); African American GFR (CKD) 80 (>60 ml/min/1.73 sqM); Albumin 3.2 g/dL (3.5-5.0); Alkaline Phosphatase 73 U/L (38-126); Anion Gap 6 mmol/L; Blood Urea Nitrogen 15 mg/dL (7-17); Calcium 8.2 mg/dL (8.4-10.2); Carbon Dioxide 25 mmol/L (22-30); Chloride 100 mmol/L (98-107); Glucose 98 mg/dL (74-99); Non-African American GFR(CKD) 69 (>60 ml/min/1.73 sqM); Potassium 5.3 mmol/L (3.5-5.1); Sodium 131 mmol/L (137-145); Total Bilirubin 0.4 mg/dL (0.2-1.3); Total Protein 5.8 g/dL (6.3-8.2)
[2025-01-05 12:27] LABS: INR 1.2 (<1.2); Partial Thromboplastin Time 29.4 sec (22.0-30.0); Prothrombin Time 12.5 sec (10.0-12.5)
--- NOTE | 2025-01-05 12:31 | XR ---
EXAMINATION TYPE: XR chest 2V DATE OF EXAM: 01/05/2025 12:19 PM COMPARISON: 08/12/2024 CLINICAL INDICATION: Female, 84 years old with history of difficulty breathing, TECHNIQUE: XR chest 2V view(s) obtained. FINDINGS: The heart size is normal. The pulmonary vasculature is normal. Small posterior pleural effusions are evident.. Bilateral shoulder prostheses are present. Sternotomy wires are in the midline. IMPRESSION: 1. Small bilateral posterior pleural effusions. 2. Exam appears stable from comparison [facility], , 01/05/2025 12:29 PM
[2025-01-05 12:36] LABS: Influenza A Detected (Not Detectd); Influenza B Not Detected (Not Detectd); RSV Not Detected (Not Detectd)
[2025-01-05] MEDS: IPRATROPIUM-ALBUTEROL 3 ML NEB INHALATION STA (13:00)
[2025-01-05] MEDS: ACETAMINOPHEN TAB 325 MG TAB PO STA (13:58)
[2025-01-05 14:01] VITALS: BP 120/96; PULSE 65; RESP 17
== END 2025-01-05 14:57 | disposition home or self-care (01) ==
LOC: EC 10:59
DX: J44.9 Chronic obstructive pulmonary disease, unspecified (principal); J10.1 Influenza due to other identified influenza virus with other respiratory manifestations; Z87.891 Personal history of nicotine dependence
CPT/HCPCS: 36415; 71046; 80053; 85025; 85610; 85730; 87636; 93005; 94640; 99285